=== PATIENT | male | born 1995 | race Caucasian/White ===

== ENCOUNTER 2018-08-10 12:38 | Emergency (ER) | payer OTHER ==
[~2018-08-10] VITALS: Ht 170.2 cm; Wt 70.5 kg
[2018-08-10 13:40] LABS: HEMATOCRIT 50.5 % (42.0-52.0); HEMOGLOBIN 17.2 g/dl (13.5-17.5); MEAN CORPUSCULAR HEMOGLOBIN 30.9 pg (27.0-33.0); MEAN CORPUSCULAR HGB CONC 34.1 g/dl (32.0-36.5); MEAN CORPUSCULAR VOLUME 90.7 fl (80.0-96.0); PLATELET COUNT, AUTOMATED 261 10^3/uL (150-450); RED BLOOD COUNT 5.57 10^6/uL (4.30-6.10); WHITE BLOOD COUNT 8.5 10^3/uL (4.0-10.0)
[2018-08-10 14:04] LABS: AMPHETAMINES LEVEL URINE NEGATIVE (NEGATIVE); BARBITURATES URINE NEGATIVE (NEGATIVE); BENZODIAZEPINES URINE NEGATIVE (NEGATIVE); CANNABINOIDS URINE NEGATIVE (NEGATIVE); COCAINE METABOLITE URINE NEGATIVE (NEGATIVE); METHADONE URINE NEGATIVE (NEGATIVE); OPIATES URINE NEGATIVE (NEGATIVE); PHENCYCLIDINE URINE NEGATIVE (NEGATIVE)
[2018-08-10 14:15] LABS: ACETAMINOPHEN LEVEL < 2.0 UG/ML (10.0-30.0); ALBUMIN 4.2 GM/DL (3.2-5.2); ALT/SGPT 131 U/L (12-78); BILIRUBIN,DIRECT 0.2 MG/DL (0.0-0.2); BILIRUBIN,TOTAL 0.7 MG/DL (0.2-1.0); BLOOD UREA NITROGEN 20 MG/DL (7-18); CALCIUM LEVEL 9.1 MG/DL (8.5-10.1); CARBON DIOXIDE LEVEL 26 MEQ/L (21-32); CHLORIDE LEVEL 102 MEQ/L (98-107); CREATININE FOR GFR 1.17 MG/DL (0.70-1.30); ETHYL ALCOHOL (ETHANOL) < 0.003 % (0.000-0.010); GLOMERULAR FILTRATION RATE > 60.0 (>60); GLUCOSE, FASTING 83 MG/DL (70-100); POTASSIUM SERUM 4.1 MEQ/L (3.5-5.1); SALICYLATE LEVEL < 1.7 MG/DL (5.0-30.0); SODIUM LEVEL 138 MEQ/L (136-145); TOTAL PROTEIN 7.4 GM/DL (6.4-8.2)
[2018-08-10 20:30] VITALS: BP 134/68
--- NOTE | 2018-08-10 21:17 | ECGEPIP ---
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
== END 2018-08-10 23:13 | disposition short-term general hospital (02) ==
LOC: M ED 12:38
DX: R45.851 Suicidal ideations (principal); F33.9 Major depressive disorder, recurrent, unspecified
CPT/HCPCS: 36415; 80048; 80076; 80307; 84443; 85027; 93005; 99284; G0480

== ENCOUNTER 2019-02-10 09:36 | Inpatient (IN) | payer OTHER ==
[~2019-02-10] VITALS: Ht 170.2 cm; Wt 82.8 kg
[2019-02-10] VITALS (30 sets, daily range): BP systolic 74–137; BP diastolic 40–76
[2019-02-10] MEDS ORDERED: IBUP200T45 PO (09:44)
[2019-02-10] MEDS ORDERED: NS 2,330 ML in IV 1 EA IV ONE (10:15)
[2019-02-10 10:49] LABS: HEMATOCRIT 44.3 % (42.0-52.0); MEAN CORPUSCULAR HEMOGLOBIN 30.7 pg (27.0-33.0); MEAN CORPUSCULAR HGB CONC 33.9 g/dl (32.0-36.5); MEAN CORPUSCULAR VOLUME 90.6 fl (80.0-96.0); PLATELET COUNT, AUTOMATED 202 10^3/uL (150-450); RED BLOOD COUNT 4.89 10^6/uL (4.30-6.10)
[2019-02-10 10:53] LABS: WHITE BLOOD COUNT 31.2 10^3/uL (4.0-10.0)
[2019-02-10] MEDS ORDERED: VANCOMYCIN HCL 1,500 MG, VIAL MATE ADAPTER 1 EACH in D5W 250 ML IV ONE (11:00)
[2019-02-10] MEDS ORDERED: PIPERACILLIN/TAZOBACTAM SOD 3.375 GM in D5W MINI-BAG PLUS 50 ML IV ONE (11:00)
[2019-02-10] MEDS ORDERED: ACETAMINOPHEN 325 MG TAB PO ONE (11:00)
[2019-02-10 11:14] LABS: ATYPICAL LYMPH 1 % (0-5); LYMPHOCYTES 1 % (16-44); MONO SCRN NEGATIVE (NEGATIVE); MONOCYTES 13 % (0-5); NEUTROPHILS 73 % (28-66)
[2019-02-10 11:15] LABS: INFLUENZA A AMPLIFICATION NEGATIVE (NEGATIVE); INFLUENZA B AMPLIFICATION NEGATIVE (NEGATIVE)
[2019-02-10 11:15] LABS: ANISOCYTOSIS 1+; PLATELET ESTIMATE NORMAL (NORMAL)
--- NOTE | 2019-02-10 11:20 | REP ---
Clinical: Cough . Comparison: None . Technique: PA and lateral. Findings: The mediastinum and cardiac silhouette are normal. The lung de leon are clear and without acute consolidation, effusion, or pneumothorax. The skeletal structures are intact and normal. Impression: 1. No acute cardiopulmonary process. Electronically Signed by Josh López MD 02/10/2019 11:12 A
[2019-02-10] MEDS ORDERED: CLINDAMYCIN 900 MG in IV 1 EA IV ONE (11:30)
[2019-02-10 11:35] LABS: ALBUMIN 2.6 GM/DL (3.2-5.2); ALT/SGPT 58 U/L (12-78); AMYLASE 24 U/L (25-115); BILIRUBIN,TOTAL 1.6 MG/DL (0.2-1.0); BLOOD UREA NITROGEN 19 MG/DL (7-18); CALCIUM LEVEL 8.1 MG/DL (8.5-10.1); CARBON DIOXIDE LEVEL 26 MEQ/L (21-32); CHLORIDE LEVEL 97 MEQ/L (98-107); GLUCOSE, FASTING 110 MG/DL (70-100); POTASSIUM SERUM 3.9 MEQ/L (3.5-5.1); SODIUM LEVEL 134 MEQ/L (136-145); TOTAL PROTEIN 6.3 GM/DL (6.4-8.2)
[2019-02-10] MEDS ORDERED: EFFE75CA2 PO (11:42)
[2019-02-10] MEDS ORDERED: ACETAMINOPHEN TAB 650MG DOSE (2X325MG) PO ONE (12:45)
[2019-02-10] MEDS ORDERED: IBUPROFEN 800 MG TAB PO ONE (12:45)
--- NOTE | 2019-02-10 14:02 | ECGEPIP ---
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
[2019-02-10] MEDS: NS 1,000 ML IV SCH ×2 (14:30→21:01)
--- NOTE | 2019-02-10 14:51 | HPE ---
DATE OF ADMISSION: 02/10/2019 PRIMARY CARE PHYSICIAN: [facility] CHIEF COMPLAINT: Flu-like symptoms with body aches and fever for one week's duration. 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 He states that his symptoms began last Thursday with body aches and fever. He went through his regular combat training. He states that he did have sparring with a partner, where he wrapped his legs around the other gentleman's belt buckle and then noticed left lower leg swelling later that night. He brushed it off over the weekend; however, on Thursday he noticed that the swelling of the left lower extremity had increased. He went to his troop medics, because it started to hurt to walk Thursday. They brushed it off and told him to put ice on it. Later that morning he went to [facility], because he started having more body aches and higher fevers. He was sent back to the [facility] and told to followup with the medics. On Thursday he tested negative for flu. He continued to have fevers along with palpitations and feeling like his heart was skipping a beat, blurry vision, headaches, and some dizziness as well as diarrhea and sweats with some general malaise, decreased appetite, and feeling like solid foods were getting stuck in his throat. Because his symptoms kept worsening, he presented to the emergency department today. While he was initially afebrile, he did admit to having some Motrin prior to coming to the emergency department. He was found to have a leukocytosis of 31,200 with 73% neutrophils and 12% bands. He was also found to have a lactic acid of 5.1, C-reactive protein (CRP) of 44, and an acute kidney injury (JESSENIA) a with a creatinine of 1.80. Because of his septic picture as well as tachycardia, he was given empiric antibiotic coverage, as well as a 30 mL/kg normal saline bolus, and the hospitalists were called for admission. PAST MEDICAL HISTORY: Anxiety and depression, for which he takes Effexor PAST SURGICAL HISTORY: None. FAMILY HISTORY: Noncontributory. 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 He is originally from [place]. He has traveled to [place], [place], [place], and [place]. He denies having any pets. [facility] He does not smoke, use chewing tobacco, do drugs, or drink alcohol. He states that his last drink was almost a year ago. He is not currently sexually active. He is unmarried. REVIEW OF SYSTEMS: CONSTITUTIONAL: Admits to weight gain from eating MREs while in [place] for training. Positive for sweats and fevers as well as intermittent chills. He also admits to malaise. EYES: Positive for headaches as well as some blurriness in his vision but denies double vision, floaters, or feeling like a curtain got pulled down. EARS, NOSE, THROAT: Denies epistaxis, runny nose, tinnitus, gingival bleeding, toothache, sore throat, or odynphagia, though he does admit that it is difficult for him to this swallow solid foods at the moment. CARDIOVASCULAR: Denies chest pain, paroxysmal nocturnal dyspnea, orthopnea, or symptoms of claudication. Positive for palpitations and feeling like his heart is skipping a beat, only associated with fevers. RESPIRATORY: Denies cough, sputum production, wheeze, hemoptysis, or shortness of breath GASTROINTESTINAL: Positive for difficulty swallowing solids with subsequent vomiting to expel what feels stuck but denies nausea or constipation. Positive for diarrhea without hematochezia, melena, or tenesmus. Denies obstipation or hematemesis. Denies abdominal pain GENITOURINARY: Denies scrotal swelling, incontinence, dysuria, hematuria, nocturia, polyuria. MUSCULOSKELETAL: Positive for diffuse body aches but denies any joint swelling or decreased range of motion. He does have left lower extremity swelling and erythema. INTEGUMENTARY: Positive for rash on his chest, in his thighs, and the posterior aspect of the left leg. No other striae or wounds. Positive for blistering and cracking as well as dry skin on the bottom of his feet. NEUROLOGIC: Denies any history of seizures, paresthesias, anesthesias, or cognitive symptoms. PSYCHIATRIC: Positive for past history of anxiety and depression. Denies paranoia, anhedonia, lack of energy, or episodes of simon. ENDOCRINE: Denies mood swings, increased appetite, tremor, constipation, polydipsia, polyphagia, or feeling faint HEMATOLOGY: Denies any anemia, purpura, or petechiae. PHYSICAL EXAMINATION: Temperature 100.7, pulse 120 and regular, respiratory rate 18, blood pressure 116/60, 99% on room air. GENERAL: This is a young and fit male, who is lying in the stretcher of the of the emergency department. He looks flushed and tired but is in no acute distress. HEENT: Eyes are clear. Mucous membranes are moist, though the tongue does look white without any friable material on it. Posterior pharynx is free of exudates or erythema. Nasal turbinates are neither erythematous nor enlarged. There is no rhinorrhea present. External auditory canals are without erythema, and the tympanic membranes have a good cone of light bilaterally. Head is atraumatic, normocephalic. Extraocular eye movements are intact. Uvula and tongue are both midline. Flat, nonblanching, macular rash across the cheeks which does not spare the nasolabial fold. NECK: Supple. No lymphadenopathy. No jugular venous distention (JVD). No thyromegaly. No masses. CHEST: Diffuse pink, flat macular rash on the anterior chest that crosses the midline and extends almost to the axilla bilaterally. Symmetric excursion. No accessory muscle usage to breathe. LUNGS: Clear to auscultation bilaterally. No wheezes, rhonchi or rales. HEART: Tachycardiac with a heart rate around 100. Regular rhythm. No murmurs, gallops, or rubs. Point of maximal impulse (PMI) is not displaced. ABDOMEN: Normoactive bowel sounds in all four quadrants. No tympany to percussion. No pain to palpation in all four quadrants. No masses. Nondistended. BACK: No rashes. Straight. Costovertebral angle (CVA) tenderness bilaterally. GENITALIA: Circumcised male. No scrotal edema, swelling, or rashes. No inguinal lymphadenopathy appreciated. EXTREMITIES: Mild nonpitting edema of the left leg in the area of the popliteal fossa. No lower extremity swelling. otherwise noted bilaterally. Pulses are 2+ in all four extremities. SKIN: On the back of the patient's left leg in the popliteal fossa there is greater than 10 cm length of erythema that is warm to touch, the central part of which is mildly indurated. There is no fluctuance appreciated nor any masses palpated below the area of erythema. It has been outlined in marking pen. There is also a mild maculopapular rash on the patient's inner anterior thighs that is warm to touch, though does not look erythematous in nature. The patient's bilateral feet to have multiple areas of blistering in different stages of healing with rawness of the surrounding skin and callus formation. There are some minor abrasion almanza on the bottom of the feet as well. NEUROLOGIC: Sensation intact throughout. Reflexes not tested. Muscle strength 5/5 in all four extremities. PSYCHIATRIC: Answers questions appropriately. Affect is full. No pressured speech noted. LABORATORY DATA: CBC: WBC 31.2, hemoglobin 15, hematocrit 44.3, platelets 202. Differential: Neutrophils 73%, bands 12%, lymphocytes 1%, monocytes 13%. Chemistry: Sodium 134, potassium 3.9, chloride 97, carbon dioxide 26, BUN 19, creatinine 1.80, glucose 110, lactic acid 5.1, calcium 8.1. Total bilirubin 1.6, direct bilirubin 1.0, AST 36, ALT 58, alkaline phosphatase 151, CRP 44.1, total protein 6.3, albumin 2.6. Amylase 24. Serology: Syphilis pending. Mononucleosis screen negative. Influenza A negative, influenza B negative. Microbiology: Blood cultures times two pending. Group A streptococcus pending. Chest x-ray Independently reviewed: PA and lateral chest. Airway is midline without tracheal deviation. Bony structures are intact. Cardiac silhouette is not enlarged. Diaphragmatic angles are sharp. There are no extra leads. Lung de leon are clear without evidence of infiltration. Normal chest x-ray. ASSESSMENT: This is a 23-year-old male being admitted to the hospital for sepsis secondary to what looks to be left lower extremity cellulitis. Admit to medical/surgical with routine labs and orders. PLAN: 1. Sepsis secondary to cellulitis. The patient received the 30 mL/kg bolus in the emergency department and had an initial lactic acid of 5.1. Will run maintenance fluids at 110 mL per hour and continue treating with empiric antibiotic therapy. Blood cultures times two are pending. Repeat lactic acid is pending. 2. Acute kidney injury, most likely secondary to his underlying infection and subsequent dehydration. Should likely resolve with adequate fluid resuscitation. 3. Cellulitis of the left lower extremity. Continue with vancomycin and Zosyn for empiric coverage. Tylenol and Motrin ordered for pain or fevers. Pending blood cultures and clinical improvement. 4. Anxiety and depression. Continue with home Effexor. 5. Deep vein thrombosis (DVT) prophylaxis. Heparin. DISPOSITION: Expect 2-3 night stay. The patient will be admitted inpatient, as we expect more than two midnights. I have personally evaluated and examined the patient. Discussed with residents and student regarding plan of care and agree with the above assessment and plan. EDELMIRA
[2019-02-10] MEDS: HEPARIN SOD (PORCINE) 5000 UNITS/ML VIAL SC SCH ×2 (15:08→21:01)
[2019-02-10] MEDS: PIPERACILLIN/TAZOBACTAM SOD 3.375 GM in D5W MINI-BAG PLUS 50 ML IV SCH ×2 (17:22→23:43)
[2019-02-10] MEDS: ACETAMINOPHEN TAB 650MG DOSE (2X325MG) PO PRN (17:27)
[2019-02-10] MEDS: VANCOMYCIN HCL 1,000 MG, VIAL MATE ADAPTER 1 EACH in D5W 250 ML IV SCH (18:31)
[2019-02-10] MEDS: DIMETHICONE 2% OINTMENT(VANIPLY) 70GM TUBE TOP SCH (21:00)
[2019-02-10] MEDS ORDERED: diphenhydrAMINE 25 MG CAP PO ONE (22:00)
[2019-02-10] MEDS ORDERED: NS 500 ML IV ONE (22:15)
[2019-02-10] MEDS ORDERED: NOREPINEPHRINE BITARTRATE 8 MG in D5W 492 ML IV SCH (23:00)
[2019-02-10] MEDS ORDERED: CALCIUM CARBONATE 500 MG CHEW U/D PO PRN (23:30)
[2019-02-10] MEDS ORDERED: SIMETHICONE 80 MG CHEW TAB PO PRN (23:30)
[2019-02-11] VITALS (36 sets, daily range): BP systolic 86–125; BP diastolic 46–56
--- NOTE | 2019-02-11 00:07 | REPVR ---
PROCEDURE INFORMATION: Exam: XR Chest, 1 View Exam date and time: 02/10/2019 11:36 PM Age: 23 years old Clinical history: Device placement; Other: Line placement; Additional info: S/P line placement TECHNIQUE: Imaging protocol: XR of the chest Views: 1 view. COMPARISON: CR Chest, 2 view PA, Lat 2019-02-10 10:22 FINDINGS: Tubes, catheters and devices: Right IJ central venous catheter tip in the mid SVC. Lungs: Engorged vasculature suggesting mild pulmonary vascular congestion. Pleural space: Unremarkable. No pleural effusion. No pneumothorax. Heart/Mediastinum: Cardiac enlargement. Bones/joints: Unremarkable. IMPRESSION: 1. Right IJ central venous catheter tip in the mid SVC. 2. Cardiac enlargement. Engorged vasculature suggesting mild pulmonary vascular congestion. Electronically signed by: Dom Paniagua On 02/11/2019 00:06:39 AM
[2019-02-11 00:19] LABS: MAGNESIUM LEVEL 1.3 MG/DL (1.8-2.4); PHOSPHORUS LEVEL 2.1 MG/DL (2.5-4.9)
[2019-02-11] MEDS ORDERED: SODIUM PHOSPHATE INJ 20 MMOL in D5W 250 ML IV ONE ×2 (01:00→04:00)
[2019-02-11] MEDS ORDERED: MAGNESIUM OXIDE 400 MG TAB (MAG-OX) PO ONE (01:15)
--- NOTE | 2019-02-11 01:31 | IPNPDOC ---
Text Note Date of Service The patient was seen on 02/11/19. NOTE NIGHT NOTE: Patient noted to be hypotensive despite aggressive fluid hydration and additional boluses added. Recheck 80s/40s. He reportedly already received 5+ l iters since admission earlier today. Chart reviewed and patient assessed at bedside on 4Pav. General exam: A&O 3, NAD, resting comfortably HEENT: NCAT, EOMI, anicteric sclera Cardiac: regular rhythm, normal S1 & S2, no murmurs, tachycardic in 130s Respiratory: good air exchange, no wheeze/rhonchi. +Bibasilar crackles Abdomen: soft, ND, normoactive bowel sounds, benign, mild abd discomfort diffusely from deep palpation pt attributes to gas Extremity: 2+ radial and dorsalis pedis pulses, no edema or calf tenderness Skin: [place], warm, dry, area of erythema in left posterior leg encircled and b/l feet with healing cracks and lesions. No active drainage or visible abscess Msk: strength 5/5 x4, normal tone Neuro: normal speech, no focal deficits Psych: Normal mood and affect Already on broad-spectrum antibiotics, and lactic acid not improved upon recheck. Was transferred to ICU urgently, central line placed, Levophed started. He responded well, currently requiring 2mcg pressor to maintain MAP >65. Resting comfortably upon recheck. VS,Fishbone, I+O VS, Fishbone, I+O Laboratory Tests 02/10/19 10:11 Vital Signs Date Time Temp Pulse Resp B/P (MAP) Pulse Ox O2 Delivery O2 Flow Rate FiO2 02/11/19 01:00 130 94/50 (65) 93 Room Air 02/11/19 00:00 98.7 18 I&O- Last 24 Hours up to 6 AM 02/11/19 06:00 Intake Total 5070 ml Output Total 1000 ml Balance 4070 ml GME ATTESTATION GME ATTESTATION My faculty preceptor for this patient encounter was physically present during the encounter and was fully available. All aspects of the patient interview, examination, medical decision making process, and medical care plan development were reviewed and approved by the faculty preceptor. The faculty preceptor is aware and concurs with the plan as stated in the body of this note and will attest to such by his/her cosignature. JEFFERSON MARTINEZ DO Feb 11, 2019 01:31
--- NOTE | 2019-02-11 01:33 | ROOPDOC ---
[facility] Report Of Operation Report of Operation DATE OF PROCEDURE: 02/10/2019 PREPROCEDURE DIAGNOSES: Septic shock, cellulitis POSTPROCEDURE DIAGNOSES: Septic shock, cellulitis PROCEDURE: right IJ central line placement Performed by: Dr. Brant Sargent and Claudio Best ANESTHESIA: local ESTIMATED BLOOD LOSS: <5mL COMPLICATIONS: none PROCEDURE NOTE: Consent was obtained prior to the procedure. Indications, risks and benefits were explained to the patient. Procedure was performed at bedside urgently in ICU. DESCRIPTION OF PROCEDURE: The patient was placed in the supine position, was placed in Trendelenburg. The right chest region and neck was prepped with chlorhexidine scrub. The patient was draped. The medial and lateral head of the sternocleidomastoid were identified, as was the carotid pulse. The internal jugular vein was identified. Anesthesia was achieved over the internal jugular vein on the right using a 1% lidocaine solution. Once anesthetized, an introducer needle was inserted into the internal jugular vein under direct ultrasound visualization. Venous blood was withdrawn, syringe was removed and a guidewire was advanced on to the introducer needle. The guidewire was visualized in the internal jugular vein by ultrasound. A small incision was made in the skin surface with a scalpel, and the introducer needle was exchanged for a dilator over the guidewire. After appropriate dilation was obtained, the dilator was exchanged over the wire for a central venous catheter. The wire was removed, and the catheter was sutured in place. A sterile bandage was placed over the catheter site. The patient tolerated the procedure well without any hemodynamic compromise. At the time of procedure completion, all ports were aspirated and flushed properly. Postprocedure x-ray was performed, which demonstrated adequate positioning of the central venous catheter in the right internal jugular vein. GME ATTESTATION GME ATTESTATION My faculty preceptor for this patient encounter was physically present during the encounter and was fully available. All aspects of the patient interview, examination, medical decision making process, and medical care plan development were reviewed and approved by the faculty preceptor. The faculty preceptor is aware and concurs with the plan as stated in the body of this note and will attest to such by his/her cosignature. CLAUDIO BEST DO Feb 11, 2019 01:33
[2019-02-11] MEDS: NS 1,000 ML IV SCH ×3 (02:34→18:06)
[2019-02-11] MEDS: HEPARIN SOD (PORCINE) 5000 UNITS/ML VIAL SC SCH ×3 (05:01→21:13)
[2019-02-11] MEDS: PIPERACILLIN/TAZOBACTAM SOD 3.375 GM in D5W MINI-BAG PLUS 50 ML IV SCH ×4 (05:01→22:17)
[2019-02-11 05:23] LABS: MEAN CORPUSCULAR HEMOGLOBIN 30.7 pg (27.0-33.0); MEAN CORPUSCULAR HGB CONC 34.2 g/dl (32.0-36.5); MEAN CORPUSCULAR VOLUME 89.8 fl (80.0-96.0); PLATELET COUNT, AUTOMATED 177 10^3/uL (150-450); RED BLOOD COUNT 4.01 10^6/uL (4.30-6.10)
[2019-02-11 05:35] LABS: WHITE BLOOD COUNT 36.3 10^3/uL (4.0-10.0)
[2019-02-11 05:36] LABS: HEMOGLOBIN 12.3 g/dl (13.5-17.5)
[2019-02-11 06:00] LABS: C REACTIVE PROTEIN QUANTITATIV 34.3 MG/DL (0.00-0.30); CALCIUM LEVEL 7.2 MG/DL (8.5-10.1); CREATININE FOR GFR 1.74 MG/DL (0.70-1.30); MAGNESIUM LEVEL 1.3 MG/DL (1.8-2.4); PHOSPHORUS LEVEL 4.8 MG/DL (2.5-4.9); POTASSIUM SERUM 3.3 MEQ/L (3.5-5.1)
[2019-02-11] MEDS: VANCOMYCIN HCL 1,000 MG, VIAL MATE ADAPTER 1 EACH in D5W 250 ML IV SCH ×3 (06:05→19:22)
[2019-02-11 06:12] LABS: ERYTHROCYTE SEDIMENTATION RATE 53 mm/hr (0-15)
[2019-02-11 06:18] LABS: ATYPICAL LYMPH 1 % (0-5); METAMYELOCYTES 2 % (0-0); MONOCYTES 3 % (0-5); NEUTROPHILS 68 % (28-66); PLATELET ESTIMATE NORMAL (NORMAL)
[2019-02-11 07:48] LABS: ALBUMIN 1.7 GM/DL (3.2-5.2); BILIRUBIN,DIRECT 1.6 MG/DL (0.0-0.2); BILIRUBIN,TOTAL 2.1 MG/DL (0.2-1.0); TOTAL PROTEIN 5.4 GM/DL (6.4-8.2)
[2019-02-11] MEDS: NYSTATIN 500,000 U/5 ML SUSP UDC SS SCH ×4 (08:29→21:13)
[2019-02-11] MEDS: VENLAFAXINE **XR** 75MG CAPSULE PO SCH (08:29)
[2019-02-11] MEDS: ACETAMINOPHEN TAB 650MG DOSE (2X325MG) PO PRN (08:29)
[2019-02-11] MEDS: DIMETHICONE 2% OINTMENT(VANIPLY) 70GM TUBE TOP SCH ×2 (08:30→21:14)
[2019-02-11] MEDS ORDERED: POTASSIUM CHLORIDE 10 MEQ SR TABLET PO ONE ×2 (08:30→19:00)
[2019-02-11 08:39] LABS: APPEARANCE, URINE MANUAL CLEAR (CLEAR); BILIRUBIN, URINE MANUAL NEGATIVE (NEGATIVE); COLOR, URINE MANUAL YELLOW (YELLOW); GLUCOSE, URINE (UA) MANUAL NEGATIVE (NEGATIVE); KETONE, URINE MANUAL NEGATIVE (NEGATIVE); PH,URINE MAN 5.5 UNITS (5.0 - 7.0); PROTEIN, URINE MANUAL TRACE mg/dL (NEGATIVE); SPECIFIC GRAVITY,URINE MANUAL 1.015 (1.002-1.035); UROBILINOGEN, URINE MANUAL NORMAL (NORMAL)
[2019-02-11 08:40] LABS: BLOOD URINE MANUAL POSITIVE (NEGATIVE); LEUKOCYTE ESTERASE, URINE MAN POSITIVE (NEGATIVE); NITRITE, URINE MANUAL NEGATIVE (NEGATIVE)
[2019-02-11] MEDS: METOCLOPRAMIDE INJ 10MG/2ML VIAL (J2765) IV PRN (08:44)
[2019-02-11] MEDS ORDERED: MAG SULF 1GM/100ML (MAG RUN) 1 GM in IV 1 EA IV ONE (09:00)
[2019-02-11 09:01] LABS: AMORPHOUS SEDIMENT, URINE SMALL AMOUNT (NEGATIVE); BACTERIA, URINE MOD AMOUNT; MUCUS, URINE SMALL AMOUNT (NEGATIVE); RBC, URINE 0-1 /hpf (0-3); RENAL EPITHELIAL CELLS, URINE SMALL AMOUNT /hpf; SQUAMOUS EPITHELIAL CELL URINE NONE SEEN /hpf (SMALL AMT)
--- NOTE | 2019-02-11 09:41 | REP ---
Clinical: Abnormal auscultation and dyspnea. Technique: PA and lateral. Comparison: 02/10/2019. Findings: Right IJ line with tip in the SVC. New bibasilar infiltrates and small pleural effusions compatible with acute pneumonia. No pneumothorax. Mediastinum and cardiac silhouette are normal. Skeletal structures intact. Impression: Bibasilar infiltrates and small pleural reactions consistent with acute pneumonia. Correlation is recommended. Electronically Signed by Josh López MD 02/11/2019 09:33 A
--- NOTE | 2019-02-11 09:42 | REP ---
Clinical: Pain. Technique: AP, lateral, bilateral oblique views of the left knee. Findings: The osseous structures and joint spaces are intact and normal. There is no evidence for acute fracture or dislocation. No joint effusion is appreciated. Surrounding soft tissues are unremarkable. No subcutaneous emphysema or radiodense foreign body. Impression: Normal examination. No acute fracture or dislocation. Electronically Signed by Josh López MD 02/11/2019 09:34 A
[2019-02-11 09:56] LABS: ANTI-STREPTOLYSIN O QUANT 22.7 IU/ML (<214.0)
[2019-02-11 10:02] LABS: HIV 1&2 SCREEN CENTAUR NEGATIVE (NEGATIVE)
[2019-02-11 10:33] LABS: HYALINE CAST, URINE NONE SEEN /lpf (0-1)
--- NOTE | 2019-02-11 10:56 | REP ---
Clinical: Pain and swelling . Technique: Alford scale and color Doppler evaluation left lower extremity using linear high frequency transducer. Findings: Ultrasound examination of the left lower extremity deep venous structures from the common femoral vein to the popliteal vein demonstrates normal compressibility flow and wave patterns in response to respiration and augmentation. There is no evidence for deep venous thrombosis. Incidental dull inguinal nodes measuring up to 5.4 cm maximal diameter. Impression: No evidence for deep venous thrombosis. Inguinal lymph nodes. Electronically Signed by Josh López MD 02/11/2019 10:47 A
--- NOTE | 2019-02-11 11:02 | REP ---
Clinical: Left popliteal fossa swelling. Technique: Real time sutherland scale and color evaluation using linear high frequency transducer. Findings: Directed ultrasound examination of the left popliteal fossa demonstrates subcutaneous edema without focal fluid collection, mass, or further abnormality by ultrasound evaluation. Popliteal vein appears patent. Impression: Subcutaneous edema. Electronically Signed by Josh López MD 02/11/2019 10:54 A
--- NOTE | 2019-02-11 12:06 | IPNPDOC ---
Text Note Date of Service The patient was seen on 02/11/19. NOTE SUBJECTIVE: Patient seen at bedside in the ICU. He remained hypotensive night despite aggressive fluid resuscitation, and he required pressor support in order to maintain a map greater than 65. He was transferred to the ICU and a central line was placed. Lactic acid done showed an increase to 5.1, and it has remained high since with some mild improvement. He continues on broad-spectrum IV antibiotics. His portable chest x-ray overnight, after the central line was placed, showed cardiomegaly with diffuse pulmonary infiltrates, which may be secondary to the amount of fluids that he received in combination with sepsis. Patient still has discomfort to the left lower extremity along with swelling. His rash has improved a little bit, and is not as red as it was yesterday. He states that he is tired, and now has shortness of breath when laying on his left side or laying flat. His continues to make urine, and the color has gone from a reddish/brownish to a gamino yellow. He states that he is still incredibly thirsty, especially when his temperature increases. He is still having some nausea with solid food and had one episode of emesis overnight. OBJECTIVE: Vitals: see below GENERAL: This is a young and fit male, who is sitting up in the ICU. He looks flushed and tired but is in no acute distress. He is pleasant and interactive HEENT: Head is atraumatic, normocephalic. Extraocular eye movements are intact. Eyes are clear, conjunctiva without pallor. Mucous membranes are moist, the tongue does not look as white as it was yesterday. Posterior pharynx is free of exudates or erythema. Uvula and tongue are both midline. Flat and macular rash across the cheeks has improved and now blanches. NECK: Supple. No lymphadenopathy. No jugular venous distention (JVD). No thyromegaly. No masses. CHEST: Diffuse pink, flat macular rash on the anterior chest has improved. Symmetric excursion. No accessory muscle usage to breathe, though breaths are more shallow today than they were yesterday. LUNGS: Clear to auscultation bilaterally in the apices. Mild bibasilar crackles appreciated, with E to A egophony present in the left lower lobe. HEART: Tachycardiac with a heart rate around 120. Regular rhythm. No murmurs, gallops, or rubs. Point of maximal impulse mildly displaced to the left. ABDOMEN: Normoactive bowel sounds in all four quadrants. No tympany to percussion. No pain to palpation in all four quadrants. No masses, no s plenomegaly. Nondistended. BACK: No rashes. Straight. Costovertebral angle (CVA) tenderness bilaterally. EXTREMITIES: Pulses are 2+ in all four extremities. The right lower extremity has no deficits and active range of motion (flexion of the hip with internal and external rotation are intact with full range of motion, as is extension and flexion of the right knee); flexion and extension of the left hip is intact with full range of motion to internal and external rotation. Flexion and extension of the left knee are limited and painful. There is no joint swelling of the anterior knees bilaterally, nor is there ballottement. There is tenderness to the posterior aspect of the left knee over the area of erythema described below, with mild nonpitting edema of the popliteal fossa and surrounding subcutaneous tissues. SKIN: On the back of the patient's left leg in the popliteal fossa there is progressive erythema which is not as pronounced as it was yesterday. The area of induration in the center of the rash is less pronounced as well. There is no fluctuance appreciated nor any masses palpated below the area of erythema. The maculopapular rash on the patient's inner anterior thighs has resolved. The patient's bilateral feet to have multiple areas of blistering in different stages of healing with rawness of the surrounding skin and callus formation. There are some minor abrasion almanza on the bottom of the feet as well. NEUROLOGIC: Sensation intact throughout. Reflexes not tested. Muscle strength 5/5 in all four extremities. PSYCHIATRIC: Answers questions appropriately. Affect is full. No pressured speech noted. LABORATORY DATA: CBC: White count still elevated at 36, with mild in hemoglobin and hematocrit consistent with the amount of fluids he received overnight. Bandemia at 26%. ESR 53. Chemistry: Potassium mildly decreased at 3.3, kidney function stable with a creatinine of 1.74. CRP decreasing from 44.1-34.3. Serology: Syphilis nonreactive. Mononucleosis screen negative. Influenza A negative, influenza B negative. MRSA not detected. Anti-streptolysin O antibody 22.7 (normal <214.0, more important is the trend this early in the disease process). HIV negative. Microbiology: Blood cultures times two pending. Group A streptococcus negative. Pro-calcitonin pending. Urine culture pending Urine: Trace protein, positive blood, positive leukocyte esterase, 5-7 urine WBCs, small amount renal epithelial cells, small amount of urine mucus Chest x-ray ordered this morning is independently reviewed: I disagree with the radiologist's read, on the lateral there looks to be a meniscus suggesting pleural effusion in the left lower lobe consistent with either a egophony heard on exam, as well as the patient's symptom of orthopnea when laying in the left lateral decubitus position. Pneumonia would not show up that quickly. ASSESSMENT: This is a 23-year-old male being admitted to the hospital for sepsis secondary to left lower extremity cellulitis. Hosp Day#2, ICU Day #1, transferred overnight due to hypotension requiring pressor support. On IV fluids and broad- spectrum antibiotics, ABX Day #2. PLAN: 1. Sepsis secondary to cellulitis. The patient received the 30 mL/kg bolus in the emergency department and continued aggressive fluid resuscitation. Despite this he had hypotension requiring transfer to the ICU, central line placement, and pressor therapy. Will continue treating with empiric antibiotic therapy, fluids and pressors. Clinically he meets criteria for toxic shock syndrome, with a fever (though it has not been recorded as greater than 102.0 Fahrenheit), diffuse macular erythroderma, hypotension requiring pressors, vomiting with diarrhea onset of his illness, myalgias, pyuria, and a total bilirubin greater than 2 times the upper limit of normal. ASO only 22.7 (positive is >214), however we will redraw in 2-3 days to assess if there is a trend, as if this is toxic shock syndrome secondary to Streptococcus species, ASO would not be elevated this early. With his worsening, despite empiric antibiotic therapy, will also test for fungal diseases as he has traveled [place] extensively around [place]. Clinically does not look like [place] spotted fever, or any rickettsial diseases. However his EKG did show an incomplete right bundle branch block, so we will screen for Lyme disease as well. HIV was negative, syphilis was negative, mono screen was negative. Differential from his complete blood count does not support a viral cause. We are also working him up for immunodeficiency by looking at complements. Should infectious disease workup be unrevealing, we will pursue rheumatological causes. 2. Cellulitis of the left lower extremity. Continue with vancomycin and Zosyn for empiric coverage. Redness improving. Tylenol and Motrin ordered for pain or fevers. Pending blood cultures and clinical improvement. Left lower extremity ultrasounds were negative for DVT, however there was an incidental dull inguinal node measuring up to 5.4 cm in maximal diameter, otherwise there was only subcutaneous edema seen in the popliteal fossa. 3. Acute kidney injury. Renal function stable at this time. Most likely secondary to sepsis from his underlying infection. Differential would also include post-streptococcal or post-infectious glomerulonephritis, or ATN. Previous creatinine in July 14.. Should likely resolve with IV fluids and antibiotics to treat his underlying infection. If the patient becomes oliguric, we will consult nephrology. 4. Tachycardia. Most likely due from his infectious process. Echocardiogram pending, as his EKG showed an incomplete right bundle-branch branch block along with sinus tachycardia, which he did not have in July 4. Anxiety and depression. Mood stable. Continue with home Effexor. 5. Deep vein thrombosis (DVT) prophylaxis. Heparin. DISPOSITION: Expect extended stay. The patient will stay in ICU until he no longer requires pressor support VS,Fishbone, I+O VS, Fishbone, I+O Laboratory Tests 02/11/19 05:05 Vital Signs Date Time Temp Pulse Resp B/P (MAP) Pulse Ox O2 Delivery O2 Flow Rate FiO2 02/11/19 07:08 98/50 02/11/19 06:00 126 93 Room Air 02/11/19 04:00 99.3 24 I&O- Last 24 Hours up to 6 AM 02/11/19 06:00 Intake Total 5708 ml Output Total 1600 ml Balance 4108 ml GME ATTESTATION ATTENDING NOTE I have personally evaluated and examined the patient. Discussed with residents/students regarding plan of care and agree with the above assessment and plan. IVAN BRENNAN D.O. Feb 11, 2019 12:06 MYLES ESTRELLA MD Feb 11, 2019 14:39
--- NOTE | 2019-02-11 14:19 | PHACANCOPD ---
PHARMACY VANCOMYCIN DOSING Pt Demographics Demographics Patient Age:23 , Weight:88.600 , Gender: male Adjusted Body Weight Date: 02/11/19, Adjusted Body Weight: Kg Events Past 24 Hours Events Past 24 Hours: YES: Fever, Elevation in WBC; NO: Dialysis, Diuretic Therapy, Change in CrCl, Pending Diagnostics, Pending Procedures, Other Vancomycin Vancomycin indication: cellulitis/sepsis Vancomycin Target Ranges: 15-20 mcg/ml Vancomycin Load Y/N: Yes Load Dose Date Time Vancomycin Load Dose: 1000mg Date: 02/10 Time: ~1230 Vancomycin Dose Date: 02/10/19. Current Vancomycin Dose: [1g IV q12h @18] Intermittent Dosing?: No Labs Labs Item Value Date Time C-Reactive Protein, Quantitative 44.10 MG/DL H 02/10/19 1011 Creatinine 1.80 MG/DL H 02/10/19 1011 White Blood Count 31.2 10^3/uL *H 02/10/19 1011 White Blood Count 36.3 10^3/uL *H 02/11/19 0505 Erythrocyte Sedimentation Rate 53 mm/hr H 02/11/19 0505 Creatinine 1.74 MG/DL H 02/11/19 0505 Vital Signs Label Value Date Time Patient Temperature 100.0 degrees F 02/11/19 1200 Temperature Source Temporal 02/11/19 1200 Micro Microbiology 02/11/19 Urine Culture, Received Pending 02/10/19 Blood Culture - Preliminary, Resulted No growth after 24 hours . All specim... 02/10/19 Group A Streptococcus Screen ([facility]) - Final, Complete 02/10/19 Blood Culture - Preliminary, Resulted No growth after 24 hours . All specim... Creatinine Clearance Date:02/11/19. Creatinine Clearance: [~60 ml/min]. Pending Labs Vanco trough scheduled 02/11 @17:00 Assessment and Plan Maintaining Current Dose?: Yes Reason for dose change: No Dose Change Pharmacist Note Pharmacist Note Date: 02/11/19. Pharmacist note: pt has been started on Zosyn and Vancomycin for cellulitis/sepsis. He also received Clindamycin 900mg IV yesterday afternoon x1 dose. His SCr remains elevated, has been receiving NS @100 ml/hr and also required Levophed last evening. He has not been on vancomycin at our facility in the past. He received his first vancomycin 1g dose in the ER yesterday around noon, followed by 1g q12h dosing to begin ~6 hours later. I have a trough scheduled this afternoon before the 18:00 dose. Cultures are pending. We will continue to monitor and make adjustments as necessary. Wisam Munoz Pharm.D. Feb 11, 2019 14:19
--- NOTE | 2019-02-11 15:01 | ECHO ---
DATE OF SERVICE: 02/11/2019 REFERRING PROVIDER: Dr. Blanca Sanford PATIENT LOCATION: Room 3202. REASON FOR THE STUDY: Dysrhythmia. 2D MEASUREMENTS: IVS: 1.0 cm LV: 5.5 cm LVPW: 1.0 cm LA: 3.5 cm Aorta: 2.7 cm RV: 3.5 cm IVC: 1.3 cm DOPPLER MEASUREMENTS: Peak velocity across the aortic valve: 1.4 m/s Peak velocity across the LVOT: 0.9 m/s Maximum tricuspid valve velocity: 2.4 m/s 2D COMMENTS: 1. Borderline enlarged left ventricle with normal left ventricular size and a normal global left ventricular systolic function. The estimated left ventricular systolic ejection fraction is 65-70%. 2. The left atrium is normal in size. The right atrium and the right ventricle appeared to be mildly enlarged but may be off axis. The right ventricular free wall seems to be moving well. 3. The atrial septum appeared to be normal, but there is a color-flow jet at the level of the fossa ovalis and a PFO/patent foramen ovale should be ruled out with a bubble study at one point. 4. Normal aortic root. 5. A small pericardial effusion was noted around the heart, no evidence of cardiac tamponade. 6. The aortic valve, mitral valve, and tricuspid valve, as well as the pulmonic valve appeared to be normal. The proximal pulmonary artery branches were not well visualized. 7. The inferior vena cava was normal in size, central venous pressure is most likely normal. DOPPLER: 1. Detects mild mitral regurgitation, trace to mild tricuspid regurgitation, and trace pulmonic regurgitation. The calculated pulmonary artery systolic pressure is about 30 mmHg. Assessment of the left ventricular diastolic function was limited, summation of the E and the A-wave was present and due to tachycardia. 2. The inferior vena cava was normal in size, central venous pressure might be normal. IMPRESSION: 1. Normal global left ventricular systolic function. Assessment of the left ventricular diastolic function was limited, as mentioned above. 2. Mild mitral regurgitation. 3. Trace to mild tricuspid regurgitation with probably mild pulmonary hypertension. 4. A small pericardial effusion was noted, no evidence of cardiac component. 5. Possible patent foramen ovale, patient might benefit from a bubble study with agitated normal saline to look for intracardiac shunt because, in limited views, the right heart chambers appeared to be mildly enlarged. 6. The patient was tachycardiac during the test with a heart rate up to 130 beats per minute at times.
[2019-02-11] MEDS: CLINDAMYCIN 900 MG in IV 1 EA IV SCH ×2 (16:37→21:13)
--- NOTE | 2019-02-11 17:26 | REPVR ---
PROCEDURE INFORMATION: Exam: CT Left Lower Extremity Without Contrast, Knee Exam date and time: 02/11/2019 4:55 PM Age: 23 years old Clinical history: Swelling or effusion of joint; Knee; Additional info: Left knee swelling, R/O compartment swelling TECHNIQUE: Imaging protocol: CT of the Left lower extremity without contrast was performed. Exam focused on the knee. Radiation optimization: All CT scans at this facility use at least one of these dose optimization techniques: automated exposure control; mA and/or kV adjustment per patient size (includes targeted exams where dose is matched to clinical indication); or iterative reconstruction. COMPARISON: CR Knee, complete LEFT 02/11/2019 9:18 AM FINDINGS: Bones/joints: Small knee joint effusion. Soft tissues: Soft tissue edema demonstrated in the subcutaneous soft tissues, adjacent to the medial and lateral aspects of the quadriceps muscles as well as in the fascial planes within the distal thigh and proximal calf. Correlation with clinical evaluation recommended to exclude compartment syndrome. IMPRESSION: 1. Small knee joint effusion. 2. Soft tissue edema demonstrated in the subcutaneous soft tissues, adjacent to the medial and lateral aspects of the quadriceps muscles as well as in the fascial planes within the distal thigh and proximal calf. Correlation with clinical evaluation recommended to exclude compartment syndrome. Electronically signed by: Nick Barragan On 02/11/2019 17:25:28 PM
[2019-02-11 17:43] LABS: HEMATOCRIT 35.5 % (42.0-52.0); HEMOGLOBIN 11.9 g/dl (13.5-17.5); MEAN CORPUSCULAR HEMOGLOBIN 30.4 pg (27.0-33.0); MEAN CORPUSCULAR HGB CONC 33.5 g/dl (32.0-36.5); MEAN CORPUSCULAR VOLUME 90.8 fl (80.0-96.0); PLATELET COUNT, AUTOMATED 173 10^3/uL (150-450); RED BLOOD COUNT 3.91 10^6/uL (4.30-6.10)
[2019-02-11 17:47] LABS: WHITE BLOOD COUNT 34.7 10^3/uL (4.0-10.0)
[2019-02-11 18:02] LABS: ALBUMIN 1.7 GM/DL (3.2-5.2); BILIRUBIN,TOTAL 1.9 MG/DL (0.2-1.0); CALCIUM LEVEL 7.5 MG/DL (8.5-10.1); CREATININE FOR GFR 1.68 MG/DL (0.70-1.30); GLOMERULAR FILTRATION RATE 55.2 (>60); POTASSIUM SERUM 3.1 MEQ/L (3.5-5.1); TOTAL PROTEIN 5.3 GM/DL (6.4-8.2)
[2019-02-11 18:19] LABS: DOHLE BODIES 1+; EOSINOPHILS 1 % (0-3); MONOCYTES 5 % (0-5); NEUTROPHILS 87 % (28-66); PLATELET ESTIMATE NORMAL (NORMAL)
[2019-02-11 18:35] LABS: MAGNESIUM LEVEL 1.9 MG/DL (1.8-2.4)
[2019-02-12] VITALS (19 sets, daily range): BP systolic 92–111; BP diastolic 50–62
[2019-02-12] MEDS: ACETAMINOPHEN TAB 650MG DOSE (2X325MG) PO PRN ×2 (00:05→15:38)
[2019-02-12] MEDS: NS 1,000 ML IV SCH ×2 (04:52→16:31)
[2019-02-12] MEDS: VANCOMYCIN HCL 1,000 MG, VIAL MATE ADAPTER 1 EACH in D5W 250 ML IV SCH ×2 (04:52→17:34)
[2019-02-12 05:16] LABS: HEMATOCRIT 34.9 % (42.0-52.0); HEMOGLOBIN 11.6 g/dl (13.5-17.5); MEAN CORPUSCULAR HEMOGLOBIN 30.1 pg (27.0-33.0); MEAN CORPUSCULAR HGB CONC 33.2 g/dl (32.0-36.5); MEAN CORPUSCULAR VOLUME 90.4 fl (80.0-96.0); PLATELET COUNT, AUTOMATED 140 10^3/uL (150-450); RED BLOOD COUNT 3.86 10^6/uL (4.30-6.10)
[2019-02-12 05:21] LABS: WHITE BLOOD COUNT 36.8 10^3/uL (4.0-10.0)
[2019-02-12] MEDS: PIPERACILLIN/TAZOBACTAM SOD 3.375 GM in D5W MINI-BAG PLUS 50 ML IV SCH ×4 (05:50→22:00)
[2019-02-12 06:02] LABS: ALBUMIN 1.5 GM/DL (3.2-5.2); BILIRUBIN,TOTAL 2.2 MG/DL (0.2-1.0); C REACTIVE PROTEIN QUANTITATIV 28.4 MG/DL (0.00-0.30); CALCIUM LEVEL 7.1 MG/DL (8.5-10.1); CREATININE FOR GFR 1.66 MG/DL (0.70-1.30); GLOMERULAR FILTRATION RATE 55.9 (>60); POTASSIUM SERUM 3.5 MEQ/L (3.5-5.1); TOTAL PROTEIN 4.4 GM/DL (6.4-8.2)
[2019-02-12 06:05] LABS: ERYTHROCYTE SEDIMENTATION RATE 64 mm/hr (0-15)
[2019-02-12] MEDS: HEPARIN SOD (PORCINE) 5000 UNITS/ML VIAL SC SCH ×3 (06:39→21:12)
[2019-02-12] MEDS: CALCIUM CARBONATE 500 MG CHEW U/D PO SCH ×3 (06:57→21:11)
[2019-02-12] MEDS: CALCIUM GLUCONATE 1,000 MG in D5W MINI-BAG PLUS 100 ML IV SCH ×2 (06:58→08:27)
--- NOTE | 2019-02-12 07:07 | REP ---
Clinical: Pleural effusion. Comparison: 02/11/2019. Findings: Bibasilar infiltrates and small pleural effusions essentially unchanged. Mediastinum and cardiac silhouette are stable. Right IJ line with tip in the SVC. No pneumothorax. Skeletal structures stable. Impression: Bibasilar infiltrates and small pleural effusions essentially unchanged. Electronically Signed by Josh López MD 02/12/2019 06:59 A
[2019-02-12] MEDS ORDERED: FUROSEMIDE 20 MG/2 ML VIAL (J1940) IV ONE (07:45)
[2019-02-12 07:51] LABS: ATYPICAL LYMPH 1 % (0-5); BASOPHILS 1 % (0-1); LYMPHOCYTES 2 % (16-44); MONOCYTES 6 % (0-5); MYELOCYTES 1 % (0-0); NEUTROPHILS 83 % (28-66); PLATELET ESTIMATE DECREASED (NORMAL)
[2019-02-12 07:52] LABS: ANISOCYTOSIS 1+
[2019-02-12] MEDS: CLINDAMYCIN 900 MG in IV 1 EA IV SCH ×3 (08:27→21:12)
[2019-02-12] MEDS: VENLAFAXINE **XR** 75MG CAPSULE PO SCH (08:27)
[2019-02-12] MEDS: NYSTATIN 500,000 U/5 ML SUSP UDC SS SCH ×4 (08:27→21:12)
[2019-02-12] MEDS: DIMETHICONE 2% OINTMENT(VANIPLY) 70GM TUBE TOP SCH ×2 (08:28→21:12)
--- NOTE | 2019-02-12 09:40 | IPNPDOC ---
Text Note Date of Service The patient was seen on 02/12/19. NOTE SUBJECTIVE: Patient seen at bedside in the ICU. He has not required pressors since 9 AM yesterday. Lactic acid is down to 2.0, though his white count has increased. He continues on broad-spectrum IV antibiotics. His chest x-ray today is stable from yesterday, he continues with pulmonary infiltrates and a left-sided pleural effusion, which may be secondary to the amount of fluids that he received in combination with having sepsis. Patient still has discomfort to the left lower extremity along with swelling. The redness of his lower extremity has improved, and the indurated section and is starting to blister. He continues to make urine, and the color randi a light yellow. He states that he is only a little thirsty. His nausea has improved, and he did not have any emesis overnight. He didn't get very much sleep though, and he did become hypoxic requiring oxygen via nasal cannula. OBJECTIVE: Vitals: see below GENERAL: This is a young and fit male, who is sitting up in the ICU. He looks flushed and tired but is in no acute distress. He is pleasant and interactive HEENT: Head is atraumatic, normocephalic. Extraocular eye movements are intact. Eyes are clear, conjunctiva without pallor. Mucous membranes are moist, the tongue is not longer white. Flat and macular rash across the cheeks has faded. NECK: Supple. No lymphadenopathy. No jugular venous distention (JVD). No thyromegaly. No masses. CHEST: Diffuse pink, flat macular rash on the anterior chest has improved. Symmetric excursion. No accessory muscle usage to breathe, though breaths are more shallow today than they were yesterday. LUNGS: Clear to auscultation bilaterally in the apices. Mild bibasilar crackles appreciated, with E to A egophony still present in the left lower lobe. HEART: Tachycardiac with a heart rate around 112. Regular rhythm. No murmurs, gallops, or rubs. Point of maximal impulse mildly displaced to the left. ABDOMEN: Normoactive bowel sounds in all four quadrants. No tympany to percussion. No pain to palpation in all four quadrants. No masses, no splenomegaly. Nondistended. BACK: No rashes. Straight. Costovertebral angle (CVA) tenderness bilaterally. EXTREMITIES: Pulses are 2+ in all four extremities. Left leg is elevated, he still has difficulty flexing or extending at the knee. Pulses ate 2+ bilaterally for dorsalis pedis and posterior tibialis pulses SKIN: On the back of the patient's left leg in the popliteal fossa there con tinues to be an area of induration with surrounding erythema which is not as pronounced as it was yesterday. The area of induration in the center of the rash has a tiny, which could be a vesicle. There is no fluctuance appreciated nor any masses palpated below the area of erythema. The maculopapular rash on the patient's inner anterior thighs has resolved. The minor abrasions and blistering areas of the bilateral feet are healing. NEUROLOGIC: Sensation intact throughout. Reflexes not tested. Muscle strength 5/5 in all four extremities. PSYCHIATRIC: Answers questions appropriately. Affect is full. No pressured speech noted. LABORATORY DATA: CBC is stable at the moment, he continues to have an elevated white count of 37, however his bandemia has resolved Chemistry: Electrolytes imbalance, kidney function stable with a creatinine of 1.66. CRP decreased to 28.4. Serology: Syphilis nonreactive. Mononucleosis screen negative. Influenza A negative, influenza B negative. MRSA not detected. Anti-streptolysin O antibody done 02/11/19 was 22.7 (normal <214.0, more important is the trend this early in the disease process). HIV negative. Microbiology: Blood cultures times two negative so far. Group A streptococcus negative. Pro calcitonin 24. Urine culture negative Urine 02/11/19: Trace protein, positive blood, positive leukocyte esterase, 5-7 urine WBCs, small amount renal epithelial cells, small amount of urine mucus Chest x-ray ordered this morning is independently reviewed: I disagree with the radiologist's read, on the lateral there looks to be a meniscus suggesting pleural effusion in the left lower lobe consistent with either a egophony heard on exam, as well as the patient's symptom of orthopnea when laying in the left lateral decubitus position. Pneumonia would not show up that quickly. ASSESSMENT: This is a 23-year-old male being admitted to the hospital for sepsis secondary to left lower extremity cellulitis. Hosp Day#3, ICU Day #2, transferred overnight 02/10 due to hypotension requiring pressor support, this has not been needed since 0900 on 02/11. Broad-spectrum antibiotics, ABX Day #3. IV fluids discontinued 02/12/19 as blood pressure improved, IV Lasix given due to nocturnal hypoxia that may be related to fluid overload. PLAN: 1. Sepsis secondary to cellulitis. The patient received the 30 mL/kg bolus in the emergency department and continued aggressive fluid resuscitation. Despite this he had hypotension requiring transfer to the ICU overnight on 02/10, central line placement, and pressor therapy. Will continue treating with empiric antibiotic therapy, and pressors if blood pressure worsens. IV fluids discontinued 02/12/2019 due to crackles at the bases of the lungs, and suspected fluid overload (he will only get them with IV antibiotics unless his lactic acid worsens). Clinically he meets criteria for toxic shock syndrome, with a presenting fever (though it has not been recorded as greater than 102.0 Fahrenheit), diffuse macular erythroderma of the left popliteal fossa and surrounding areas, hypotension requiring pressors, vomiting with diarrhea at the onset of his illness, myalgias, pyuria, and a total bilirubin greater than 2 times the upper limit of normal. ASO only 22.7 (positive is >214), however we will redraw in 2-3 days to assess if there is a trend, as if this is toxic shock syndrome secondary to Streptococcus species, ASO would not be elevated this early (typical peak is 3-5 weeks after the onset of illness according to literature review). Clindamycin was added 02/11/19 for bacteriostatic properties as toxic shock syndrome is being considered. Fungal etiology work up pending. Clinically does not look like [address] spotted fever, or any rickettsial diseases. However his EKG did show an incomplete right bundle branch block, Lyme screen pending (incomplete RBBB could be due to right heart strain 2/2 sepsis as well). HIV was negative, syphilis was negative, mono screen was negative. Differential from his complete blood count does not support a viral cause. We are also working him up for immunodeficiency by looking at complements (c3a unable to be tested as the kits in the lab are ). Should infectious disease workup be unrevealing, we will pursue rheumatological causes. 2. Cellulitis of the left lower extremity. Continue with vancomycin and Zosyn for empiric coverage. Redness improving today. Tylenol and Motrin ordered for pain or fevers. Pending blood cultures and clinical improvement. Left lower extremity ultrasounds were negative for DVT, however there was an incidental dull inguinal node measuring up to 5.4 cm in maximal diameter, otherwise there was only subcutaneous edema seen in the popliteal fossa. Dr. Yu from orthopedics was consulted due to increased swelling yesterday afternoon, and he does not think the patient requires immediate surgery (low risk for compartment syndrome or need for necrotizing fasciitis at this time given broad spectrum antibiotic therapy), appreciate his help. 3. Acute kidney injury. Renal function stable at this time. Most likely secondary to sepsis from his underlying infection. Differential would also i nclude post-streptococcal or post-infectious glomerulonephritis, or ATN. Previous creatinine in 04.01. Should likely resolve with treatment of the underlying infection. One dose of IV Lasix 20 mg ordered due to volume overload. If the patient becomes oliguric, we will consult nephrology. 4. Tachycardia, improving. Most likely due from his infectious process. Echocardiogram was ordered, as his EKG showed an incomplete right bundle-branch branch block along with sinus tachycardia, which he did not have in July. Will repeat his EKG when he is not tachycardiac to see if this resolves. Echocardi ogram showed borderline enlarged left ventricle with an ejection fraction between 65-70%, as well as a mildly enlarged right atrium and right ventricle with normokinetic movement, suspicion for PFO (which may require a bubble study at a later date), as well as small pericardial effusion without evidence of cardiac tamponade. By Doppler he also had mild mitral regurgitation, trace to mild tricuspid regurgitation and trace pulmonic regurgitation with a calculated pulmonary artery systolic pressure at about 30 mmHg. This may be due to fluid overload. 5. Nocturnal hypoxia. May be due to pulmonary edema secondary to fluid overload, sepsis, or anemia from aggressive fluid resuscitation. For right now we will continue with supportive oxygen to maintain his saturation greater than 92%. If this persists after the resolution of his underlying infection, then will revisit for further evaluation. 6. Anxiety and depression. Mood stable. Continue with home Effexor. 7. Deep vein thrombosis (DVT) prophylaxis. Heparin. DISPOSITION: Expect extended stay. The patient will stay in ICU until he is more stable Attending Attestation: I have personally evaluated and examined the patient. Discussed with residents and student regarding plan of care and agree with the above assessment and plan. VS,Fishbone, I+O VS, Fishbone, I+O Laboratory Tests 02/11/19 17:22 02/12/19 05:00 Vital Signs Date Time Temp Pulse Resp B/P (MAP) Pulse Ox O2 Delivery O2 Flow Rate FiO2 02/12/19 08:00 98.5 112 24 100/59 (73) 93 Room Air 02/12/19 06:00 1.0 I&O- Last 24 Hours up to 6 AM 02/12/19 06:00 Intake Total 6177.4 ml Output Total 3500 ml Balance 2677.4 ml GME ATTESTATION GME ATTESTATION My faculty preceptor for this patient encounter was physically present during the encounter and was fully available. All aspects of the patient interview, examination, medical decision making process, and medical care plan development were reviewed and approved by the faculty preceptor. The faculty preceptor is aware and concurs with the plan as stated in the body of this note and will attest to such by his/her cosignature. IVAN BRENNAN D.O. Feb 12, 2019 09:40 MYLES ESTRELLA MD Feb 12, 2019 12:10
--- NOTE | 2019-02-12 09:54 | HPE ---
DATE OF ADMISSION: 02/12/2019 CHIEF COMPLAINT: Left leg cellulitis. 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 This was on 02/10/2019, now 2 days ago. He says that this all started back on Thursday about 5 days ago now. He is doing some training, and he thinks that perhaps his left posterior knee got scratched. This progressed in terms of redness and swelling, as well as constitutional symptoms. He was admitted to hospital and to the hospitalists and started on antibiotics. He states that it is a little bit better today. I was consulted for the left leg cellulitis. PAST MEDICAL HISTORY: Anxiety and depression. MEDICATIONS: - Effexor No known drug allergies. SURGICAL HISTORY: None. FAMILY HISTORY: Noncontributory. SOCIAL HISTORY: He has been in the [employer] for 3 years. He does not smoke or use alcohol or drugs. He is unmarried. PHYSICAL EXAMINATION: Vital signs: Temperature 98.5. Pulse rate 115. Blood pressure 92/51. 91% on 1 liter nasal prongs. Respiratory rate 22. He appears overall well and nontoxic. He is alert and oriented times three. He responds appropriately to questions. Inspection of the lower extremities reveal an area of erythematous warm cellulitis-appearing tissue posteriorly to his left knee. There is an oval area overall that measures approximately 12 inches from proximal to distal and medial to lateral about 6 inches. There is no knee joint effusion. Passive and active range of motion of the knee reveals no obvious knee pain or signs of septic arthritis. He has pain to light touch of the red area, and it blanches with touch. Normal sensation in both his feet to the superficial and deep peroneal nerves, as well as saphenous, sural, and tibial. Good pedal pulses. Feet are warm and well perfused. He is able wiggle his toes, dorsiflex and plantarflex foot. Compartments are soft in the lower extremity, as well as the thighs on both sides. No concern for compartment syndrome. No pain with passive stretch. No pain at the hip or ankle. LABORATORY EXAMINATION: Revealed high white blood cell count anywhere between 31-36. His ESR is 53-64. His CRP has not been drawn. Syphilis serology nonreactive. [place] screen negative. HIV negative. Influenza negative. MRSA not detected. Urine culture shows no growth. Blood cultures reveal no growth after 24 hours. Throat culture is negative for Streptococcus pyogenes group A. Knee x-ray shows normal examination. No acute fracture or dislocation. CURRENT MEDICATIONS: Include: - vancomycin every 8 hours intravenous (IV) - clindamycin phosphate every 8 hours IV - nystatin - piperacillin/tazobactam every 6 hours IV ASSESSMENT AND PLAN: A 23-year-old man who appears to have a severe left knee cellulitis. I have no concern for compartment syndrome or a septic joint. I think the best course of action in agreement with the hospitalist is to treat with intravenous antibiotics. One could consider infectious disease consult to help with tailor his antibiotics. In addition, I would recommend following along with C-reactive protein (CRP) testing every 1-2 days in addition to the erythrocyte sedimentation rate (ESR) that has already been tested for in order to ensure he is having a good clinical response to the antibiotics. I will follow every 1-2 days while he is in hospital to ensure that this is resolving. Thank you very much for involving me in this young man's care.
[2019-02-12] MEDS: METOCLOPRAMIDE INJ 10MG/2ML VIAL (J2765) IV PRN (10:49)
[2019-02-12 12:40] LABS: VANCOMYCIN LEVEL TROUGH 14.5 UG/ML (10.0-20.0)
--- NOTE | 2019-02-12 12:50 | PHACANCOPD ---
PHARMACY VANCOMYCIN DOSING Pt Demographics Demographics Patient Age:23 , Weight:86.200 , Gender: male Adjusted Body Weight Date: 02/11/19, Adjusted Body Weight: Kg Events Past 24 Hours Events Past 24 Hours: YES: Elevation in WBC; NO: Dialysis, Diuretic Therapy, Change in CrCl, Fever, Pending Diagnostics, Pending Procedures, Other Vancomycin Vancomycin indication: cellulitis/sepsis Vancomycin Target Ranges: 15-20 mcg/ml Vancomycin Load Y/N: Yes Load Dose Date Time Vancomycin Load Dose: 1000mg Date: 02/10 Time: ~1230 Vancomycin Dose Date: 02/12/19. Current Vancomycin Dose: [1g IV q12h @18] Date: 02/11/19. Current Vancomycin Dose: [1g IV Q8H @20] Date: 02/10/19. Current Vancomycin Dose: [1g IV q12h @18] Intermittent Dosing?: No Labs Labs Item Value Date Time Vancomycin Level Trough 14.5 UG/ML 02/11/19 1722 Vancomycin Level Trough 26.7 UG/ML *H 02/12/19 1053 Creatinine 1.68 MG/DL H 02/11/19 1722 Creatinine 1.66 MG/DL H 02/12/19 0500 White Blood Count 36.3 10^3/uL *H 02/11/19 0505 White Blood Count 34.7 10^3/uL *H 02/11/19 1722 White Blood Count 36.8 10^3/uL *H 02/12/19 0500 Micro Microbiology 02/11/19 Urine Culture - Final, Complete 02/10/19 Blood Culture - Preliminary, Resulted No Growth after 48 hours. All Specime... 02/10/19 Group A Streptococcus Screen (SAMRA) - Final, Complete 02/10/19 Blood Culture - Preliminary, Resulted No Growth after 48 hours. All Specime... Creatinine Clearance Date:02/11/19. Creatinine Clearance: [~60 ml/min]. Pending Labs Vanco trough scheduled 02/13 @05:00 Assessment and Plan Maintaining Current Dose?: No Reason for dose change: Trough too high, Significant event (trough from 02/11 was re-run, changed from 1 to 14.5 mcg/ml) Pharmacist Note Pharmacist Note Date: 02/12/19. Pharmacist note: pt is currently on day #3 of vancomycin/Zosyn treatment, day #2 of clindamycin. Last evening, his vancomycin level was drawn and resulted in 1mcg/ml. I had changed his dosing to 1g IV q8h. Today, that blood sample was rechecked and the trough yesterday was actually 14.5 mcg/ml. Repeat vancomycin trough at ~1 hour prior to q8h dosing x2 doses was 26.7 mcg/ml. I have reduced his dosing back to 1g IV q12h. SCr is mildly improved today, IVF has been stopped. WBCs are still trending up. Cultures have been NGTD. I have scheduled another trough for tomorrow morning. We will continue to monitor and make adjustments as necessary. Date: 02/11/19. Pharmacist note: pt has been started on Zosyn and Vancomycin for cellulitis/sepsis. He also received Clindamycin 900mg IV yesterday afternoon x1 dose. His SCr remains elevated, has been receiving NS @100 ml/hr and also required Levophed last evening. He has not been on vancomycin at our facility in the past. He received his first vancomycin 1g dose in the ER yesterday around noon, followed by 1g q12h dosing to begin ~6 hours later. I have a trough scheduled this afternoon before the 18:00 dose. Cultures are pending. We will continue to monitor and make adjustments as necessary. Wisam Munoz Pharm.D. Feb 12, 2019 12:50
[2019-02-13] VITALS (11 sets, daily range): BP systolic 96–111; BP diastolic 51–61
[2019-02-13] MEDS: NS 1,000 ML IV SCH (04:01)
[2019-02-13] MEDS: PIPERACILLIN/TAZOBACTAM SOD 3.375 GM in D5W MINI-BAG PLUS 50 ML IV SCH ×4 (04:01→22:09)
[2019-02-13] MEDS: CALCIUM CARBONATE 500 MG CHEW U/D PO SCH ×3 (05:32→21:09)
[2019-02-13] MEDS: CLINDAMYCIN 900 MG in IV 1 EA IV SCH ×3 (05:33→21:10)
[2019-02-13] MEDS: HEPARIN SOD (PORCINE) 5000 UNITS/ML VIAL SC SCH ×3 (05:33→21:09)
[2019-02-13 05:50] LABS: HEMATOCRIT 32.9 % (42.0-52.0); HEMOGLOBIN 11.6 g/dl (13.5-17.5); MEAN CORPUSCULAR HEMOGLOBIN 30.9 pg (27.0-33.0); MEAN CORPUSCULAR HGB CONC 35.3 g/dl (32.0-36.5); MEAN CORPUSCULAR VOLUME 87.5 fl (80.0-96.0); PLATELET COUNT, AUTOMATED 134 10^3/uL (150-450); RED BLOOD COUNT 3.76 10^6/uL (4.30-6.10); WHITE BLOOD COUNT 28.7 10^3/uL (4.0-10.0)
[2019-02-13 06:03] LABS: ALBUMIN 1.5 GM/DL (3.2-5.2); BILIRUBIN,TOTAL 1.7 MG/DL (0.2-1.0); CALCIUM LEVEL 7.2 MG/DL (8.5-10.1); CREATININE FOR GFR 1.68 MG/DL (0.70-1.30); GLOMERULAR FILTRATION RATE 55.2 (>60); POTASSIUM SERUM 3.1 MEQ/L (3.5-5.1); TOTAL PROTEIN 4.5 GM/DL (6.4-8.2)
[2019-02-13 06:42] LABS: VANCOMYCIN LEVEL TROUGH 16.1 UG/ML (10.0-20.0)
[2019-02-13] MEDS: VANCOMYCIN HCL 1,000 MG, VIAL MATE ADAPTER 1 EACH in D5W 250 ML IV SCH ×2 (06:44→18:36)
--- NOTE | 2019-02-13 08:35 | REP ---
Clinical: Dyspnea and fevers. Technique: PA and lateral. Comparison: 02/12/2019. Findings: Bilateral lower lobe infiltrates with small pleural effusions (left greater than right) essentially unchanged from prior examination. Cardiac silhouette is stable. No pneumothorax. Right IJ line with tip in the SVC. Double structures intact. Impression: Stable bibasilar infiltrates and pleural effusions. Electronically Signed by Josh López MD 02/13/2019 08:26 A
[2019-02-13] MEDS: VENLAFAXINE **XR** 75MG CAPSULE PO SCH (09:14)
[2019-02-13] MEDS: NYSTATIN 500,000 U/5 ML SUSP UDC SS SCH ×4 (09:14→21:09)
[2019-02-13] MEDS: DIMETHICONE 2% OINTMENT(VANIPLY) 70GM TUBE TOP SCH ×2 (09:14→21:10)
--- NOTE | 2019-02-13 09:49 | IPNPDOC ---
Date Seen The patient was seen on 02/13/19. Progress Note SUBJECTIVE: Patient reports feeling better. LE erythema had improved. HR now in low 100s, even into high 90s at rest. BP remained stable SBP 90-100s. Pressor remains off. OBJECTIVE PHYSICAL EXAMINATION: VITAL SIGNS: Please see below. General: No acute distress, Alert Eyes: Normal sclera, EOMI, GERSON HENT: Atraumatic Cardiovascular: Tachycardia, normal rhythm. Pulmonary: Clear to auscultation b/l, no wheezing GI: Soft, nontender, nondistended Skin: Warm and dry. L. popliteal fossa erythema with 2 small vesicular blisters, mild induration but no crepitus. Small region of erythema on superior anteromedial surface of L. knee. Neuro: CN grossly intact. No focal deficits. Strengths equal b/l. Psych: oriented x 3 LABORATORY DATA, IMAGING STUDIES, MICROBIOLOGY: Please see below. DVT prophylaxis ordered?: HSQ ASSESSMENT AND PLAN: 1. Sepsis 2/2 soft tissue infection of LLE - Improving. HR trending down, leukocytosis trending down with resolution of lactic acidosis. - s/p 30cc/kg IVF bolus and broad spectrum antibiotics, pressor remains off for about 48 hours. - Erythema improving. Blood cultures so far negative after 48 hours. DVT ruled out. - CT LLE shows soft tissue edema but no evidence of gas. No crepitus on exam. - Seen by Orthopedic surgery. No strong suspicion for compartment syndrome or septic joint. - Will consult ID to discuss abx de-escalation given negative cultures so far, although patient still has significant leukocytosis and tachycardic, would not [place] narrowing abx until further improvement or discussion with ID. - Concern for toxic shock syndrome. ASO 22.7 on presentation, to repeat. - HIV, syphylis negative. 2. JESSENIA - 2/2 sepsis on presentation. IVF support but will turn off today given evidence of fluid overload. - continue to monitor kidney function. 3. Nocturnal hypoxia - in setting of fluid overload, improved post lasix dose. - Saturating well currently. monitor sat. VS, I&O, 24H, Fishbone Vital Signs/I&O Vital Signs Date Time Temp Pulse Resp B/P (MAP) Pulse Ox O2 Delivery O2 Flow Rate FiO2 02/13/19 06:00 103 23 108/56 (73) 93 Nasal Cannula 1.0 02/13/19 04:00 98.9 I&O- Last 24 Hours up to 6 AM 02/13/19 06:00 Intake Total 6630 ml Output Total 5700 ml Balance 930 ml Laboratory Data 24H LABS Laboratory Tests 2 02/12/19 10:53: Vancomycin Level Trough 26.7*H 02/12/19 15:28: Lactic Acid Level 2.1*H 02/12/19 19:35: Lactic Acid Followup at 4 Hours 1.6 02/13/19 05:21: Vancomycin Level Trough 16.1, Nucleated Red Blood Cells % (auto) 0.0, Anion Gap 8, Glomerular Filtration Rate 55.2L, Calcium Level 7.2L, Total Bilirubin 1.7H, Aspartate Amino Transf (AST/SGOT) 40H, Alanine Aminotransferase (ALT/SGPT) 44, Alkaline Phosphatase 129H, Total Protein 4.5L, Albumin 1.5L, Albumin/Globulin Ratio 0.50L CBC/BMP Laboratory Tests 02/13/19 05:21 Microbiology Microbiology 02/11/19 Urine Culture - Final, Complete 02/10/19 Blood Culture - Preliminary, Resulted No Growth after 48 hours. All Specime... 02/10/19 Group A Streptococcus Screen (SAMRA) - Final, Complete 02/10/19 Blood Culture - Preliminary, Resulted No Growth after 48 hours. All Specime... MYLES ESTRELLA MD Feb 13, 2019 09:49
[2019-02-13] MEDS ORDERED: POTASSIUM CHLORIDE 10 MEQ SR TABLET PO ONE ×2 (20:45→21:00)
[2019-02-14] VITALS (7 sets, daily range): BP systolic 105–143; BP diastolic 55–65
[2019-02-14] MEDS: PIPERACILLIN/TAZOBACTAM SOD 3.375 GM in D5W MINI-BAG PLUS 50 ML IV SCH ×2 (04:04→10:55)
[2019-02-14 04:22] LABS: HEMATOCRIT 34.8 % (42.0-52.0); HEMOGLOBIN 11.9 g/dl (13.5-17.5); MEAN CORPUSCULAR HEMOGLOBIN 30.4 pg (27.0-33.0); MEAN CORPUSCULAR HGB CONC 34.2 g/dl (32.0-36.5); PLATELET COUNT, AUTOMATED 108 10^3/uL (150-450); RED BLOOD COUNT 3.91 10^6/uL (4.30-6.10); WHITE BLOOD COUNT 29.5 10^3/uL (4.0-10.0)
[2019-02-14 04:49] LABS: ALBUMIN 1.5 GM/DL (3.2-5.2); BILIRUBIN,TOTAL 1.1 MG/DL (0.2-1.0); CALCIUM LEVEL 7.1 MG/DL (8.5-10.1); CREATININE FOR GFR 1.77 MG/DL (0.70-1.30); MAGNESIUM LEVEL 2.3 MG/DL (1.8-2.4); POTASSIUM SERUM 3.1 MEQ/L (3.5-5.1); TOTAL PROTEIN 4.8 GM/DL (6.4-8.2)
[2019-02-14] MEDS: VANCOMYCIN HCL 1,000 MG, VIAL MATE ADAPTER 1 EACH in D5W 250 ML IV SCH (05:16)
[2019-02-14] MEDS ORDERED: POTASSIUM CHLORIDE 10 MEQ SR TABLET PO ONE (06:00)
[2019-02-14] MEDS: CALCIUM CARBONATE 500 MG CHEW U/D PO SCH ×3 (06:23→21:11)
[2019-02-14] MEDS: HEPARIN SOD (PORCINE) 5000 UNITS/ML VIAL SC SCH ×3 (06:23→21:13)
[2019-02-14] MEDS: CLINDAMYCIN 900 MG in IV 1 EA IV SCH ×3 (06:23→21:09)
[2019-02-14 07:44] LABS: C REACTIVE PROTEIN QUANTITATIV 11.1 MG/DL (0.00-0.30)
[2019-02-14] MEDS: NYSTATIN 500,000 U/5 ML SUSP UDC SS SCH ×4 (09:35→21:09)
[2019-02-14] MEDS: VENLAFAXINE **XR** 75MG CAPSULE PO SCH (09:35)
[2019-02-14] MEDS: DIMETHICONE 2% OINTMENT(VANIPLY) 70GM TUBE TOP SCH ×2 (09:36→21:13)
--- NOTE | 2019-02-14 10:14 | IPNPDOC ---
Text Note Date of Service The patient was seen on 02/14/19. NOTE SUBJECTIVE: Patient seen at bedside in PCU. He has not required pressors. WBC improving slowly. He continues on broad-spectrum IV antibiotics. His chest x-ray has been stable, he continues with pulmonary infiltrates and a left-sided pleural effusion, which may be secondary to the amount of fluids that he received in combination with having sepsis. He continues to make urine, output yesterday was 3325 mLs, with a positive balance of 995. He has been able to eat small amounts. Patient still has discomfort to the left lower extremity along with swelling. The redness of his lower extremity has improved, and the indurated section is starting to blister. He states that he is only a little thirsty. His nausea has improved, and he has not had any episodes of emesis in a few days. He has not needed oxygen, denies shortness of breath. Heart rate has improved, he noticed that he was in the 80s last night. OBJECTIVE: Vitals: see below GENERAL: This is a young and fit male, who is sitting up in bed in the PCU. He looks tired but is in no acute distress. He is pleasant and interactive HEENT: Head is atraumatic, normocephalic. Extraocular eye movements are i ntact. Eyes are clear, conjunctiva without pallor. Mucous membranes are moist. NECK: Supple. No lymphadenopathy. No jugular venous distention (JVD). No thyromegaly. No masses. Right jugular central line in place without surrounding erythema. CHEST: Symmetric excursion. No accessory muscle usage to breathe. LUNGS: Clear to auscultation bilaterally in the apices. Mild bibasilar crackles appreciated, with E to A egophony still present in the left lower lobe. HEART: Regular rate and rhythm; not tachycardic. No murmurs, gallops, or rubs. ABDOMEN: Normoactive bowel sounds in all four quadrants. No tympany to percussion. No pain to palpation in all four quadrants. No masses, no spl enomegaly. Nondistended. BACK: No rashes. Straight. Costovertebral angle (CVA) tenderness bilaterally. EXTREMITIES: Pulses are 2+ in all four extremities. Left leg is elevated, active range of motion has increased 4 flexing or extending at the knee. Pulses ate 2+ bilaterally for dorsalis pedis and posterior tibialis pulses SKIN: On the back of the patient's left leg in the popliteal fossa there continues to be an area of induration with surrounding erythema which is not as pronounced as it was yesterday. The area of induration in the center of the rash has a tiny, which could be a vesicle. There is no fluctuance appreciated nor any masses palpated below the area of erythema. The maculopapular rash on the patient's inner anterior thighs has resolved. The minor abrasions and blisterin g areas of the bilateral feet are healing. NEUROLOGIC: Sensation intact throughout. Reflexes not tested. Muscle strength 5/5 in all four extremities. PSYCHIATRIC: Answers questions appropriately. Affect is full. No pressured speech noted. LABORATORY DATA: CBC improving. Chemistry: Mild hypo-kalemia. Renal function is stable. CRP decreasing Serology: Syphilis nonreactive. Mononucleosis screen negative. Influenza A negative, influenza B negative. MRSA not detected in the nares. Anti-s treptolysin O antibody done 02/11/19 was 22.7, ASO done today 440. Microbiology: Blood cultures times two negative. Group A streptococcus negative. Pro calcitonin 24. Urine culture negative. Throat culture negative. Urine 02/11/19: Trace protein, positive blood, positive leukocyte esterase, 5-7 urine WBCs, small amount renal epithelial cells, small amount of urine mucus Chest x-rays appear stable. ASSESSMENT: This is a 23-year-old male admitted to the hospital for sepsis secondary to left lower extremity cellulitis. Hospital Day#5, pressor support has not been needed since 0900 on 02/11. Broad-spectrum antibiotics, ABX Day #5. IV fluids discontinued 02/12/19 as blood pressure improved. PLAN: 1. Sepsis secondary to cellulitis. The patient received the 30 mL/kg bolus in the emergency department and continued aggressive fluid resuscitation. Despite this he had hypotension requiring transfer to the ICU overnight on 02/10, central line placement, and pressor therapy. Will continue treating with empiric antibiotic therapy.. IV fluids discontinued 02/12/2019 due to crackles at the bases of the lungs, and suspected fluid overload (he will only get them with IV antibiotics). Clinically he meets criteria for toxic shock syndrome, with a presenting fever (though it has not been recorded as greater than 102.0 Fahrenheit), diffuse macular erythroderma of the left popliteal fossa and surrounding areas, hypotension requiring pressors, vomiting with diarrhea at the onset of his illness, myalgias, pyuria, and a total bilirubin greater than 2 times the upper limit of normal. ASO on 02/14/19 was 22.7 (positive is >214), however repeat today is 440. Clindamycin was added 02/11/19 for bacteriostatic properties. Fungal etiology work up pending. Clinically does not look like [place] spotted fever, or any rickettsial diseases. However his EKG did show an incomplete right bundle branch block, Lyme screen pending (incomplete RBBB could be due to right heart strain 2/2 sepsis as well). HIV was negative, syphilis was negative, mono screen was negative. Differential from his complete blood count does not support a viral cause. We are also working him up for immunodeficiency by looking at complements (c3a unable to be tested as the kits in the lab are ). 2. Cellulitis of the left lower extremity, improving. Continue with vancomycin and Zosyn for empiric coverage. Tylenol and Motrin ordered for pain or fevers. Blood cultures negative. Left lower extremity ultrasounds were negative for DVT, however there was an incidental dull inguinal node measuring up to 5.4 cm in maximal diameter, otherwise there was only subcutaneous edema seen in the popliteal fossa. Dr. Yu from orthopedics was consulted due to increased swelling yesterday afternoon, and he did not think the patient requires immediate surgery (low risk for compartment syndrome or need for necrotizing fasciitis at this time given broad spectrum antibiotic therapy), appreciate his help. Dr. Ortiz from infectious disease consulted for antibiotic therapy de- escalation as patient has suspected toxic shock syndrome. 3. Acute kidney injury. Renal function stable at this time. Most likely secondary to sepsis from his underlying infection. Differential would also include post-streptococcal or post-infectious glomerulonephritis, or ATN. Previous creatinine in July 14.17. Should likely resolve with treatment of the underlying infection, may take 8+ weeks. If the patient becomes oliguric, we will consult nephrology. 4. Tachycardia, improving. Most likely due from his infectious process. Echocardiogram was ordered, as his EKG showed an incomplete right bundle-branch branch block along with sinus tachycardia, which he did not have in July. May repeat his EKG when he is not tachycardiac to see if this resolves. Echocardiogram showed borderline enlarged left ventricle with an ejection fraction between 65-70%, as well as a mildly enlarged right atrium and right ventricle with normokinetic movement, suspicion for PFO (which may require a bubble study at a later date), as well as small pericardial effusion without evidence of cardiac tamponade. By Doppler he also had mild mitral regurgitation, trace to mild tricuspid regurgitation and trace pulmonic regurgitation with a calculated pulmonary artery systolic pressure at about 30 mmHg. This may be due to fluid overload. 5. Nocturnal hypoxia, resolving, has not needed O2 supplementation since 02/13. May be due to pulmonary edema secondary to fluid overload, sepsis, or anemia from aggressive fluid resuscitation. For right now we will continue with supportive oxygen to maintain his saturation greater than 92%. If this persists after the resolution of his underlying infection, then will revisit for further evaluation. 6. Anxiety and depression. Mood stable. Continue with home Effexor. 7. Deep vein thrombosis (DVT) prophylaxis. Heparin. DISPOSITION: Pending antibiotic de-escalation, physical therapy evaluation. Potentially home in the next 24-48 hours. VS,Fishbone, I+O VS, Fishbone, I+O Laboratory Tests 02/14/19 04:03 Vital Signs Date Time Temp Pulse Resp B/P (MAP) Pulse Ox O2 Delivery O2 Flow Rate FiO2 02/14/19 07:55 98.8 92 18 120/64 (82) 95 Room Air 02/13/19 06:00 1.0 I&O- Last 24 Hours up to 6 AM 02/14/19 06:00 Intake Total 4520 ml Output Total 3275 ml Balance 1245 ml GME ATTESTATION E ATTESTATION My faculty preceptor for this patient encounter was physically present during the encounter and was fully available. All aspects of the patient interview, ex amination, medical decision making process, and medical care plan development were reviewed and approved by the faculty preceptor. The faculty preceptor is aware and concurs with the plan as stated in the body of this note and will attest to such by his/her cosignature. ATTENDING NOTE I have personally evaluated and examined the patient. Discussed with residents and student regarding plan of care and agree with the above assessment and plan. IVAN BRENNAN D.O. Feb 14, 2019 10:14 MYLES ESTRELLA MD Feb 14, 2019 13:43
[2019-02-14] MEDS ORDERED: SLF 3 ML SYR IV PRN (10:45)
[2019-02-14] MEDS: ACETAMINOPHEN TAB 650MG DOSE (2X325MG) PO PRN (11:07)
[2019-02-14] MEDS: LACTOBACILLUS ACIDOPHILUS CAP (BACID) PO SCH ×2 (13:25→19:07)
[2019-02-14] MEDS: SLF 3 ML SYR IV SCH ×2 (17:16→21:14)
--- NOTE | 2019-02-14 18:08 | CR ---
DATE OF CONSULTATION: 02/14/2019 CONSULTATION REPORT FOR: Dr. Adams REASON FOR CONSULTATION: Evaluation of left lower extremity cellulitis with septic shock. 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 The patient stated that his symptoms had started about five days prior to admission with severe achiness and fever. He thought he had the flu but then he developed left leg pain and swelling. He went to see his troop medics and they recommended to use Motrin for fever and to help with a sprain in his leg. The patient got progressively worse. He developed severe night sweats, body aches, fever, and therefore asked his roommate to bring him to the hospital. He was tested for the flu, that was negative and he had a flu shot last month. He denied any headache. He had some dizziness, some diarrhea and nausea, a mild cough and decreased appetite. He was treated at [facility] with Levophed for hypotension. He had IV vancomycin, Zosyn, and clindamycin for presumed toxic shock and cellulitis. He was transferred from the intensive care unit (ICU) this morning to progressive care unit (PCU) and doing much better. His leg pain has improved. He is able to walk on it. His C-reactive protein (CRP) and white count have improved. His CRP was 44 and white count was up to 31,000. PAST MEDICAL HISTORY: Significant for anxiety and depression. He was seen at the emergency room (ER) for suicide ideation in July of 2018. PAST SURGICAL HISTORY: Negative. FAMILY HISTORY: Negative. SOCIAL HISTORY: He has been in the [employer] for three years. He is originally from [place]. He has traveled to [facility], [place], [place], and [place]. He denies having any pets. No children. No girlfriend. REVIEW OF SYSTEMS: He had fevers and sweats. He has weight gain, some headaches. He had nausea and vomiting but that has resolved. He has no chest pain, paroxysmal nocturnal dyspnea (PND), or orthopnea. He has a mild cough. He has a peeling rash on both feet that has been going on for over a month. PHYSICAL EXAMINATION: Pleasant, healthy-looking gentleman in no acute distress. Temperature is 97.9, pulse 90, respirations 18, blood pressure 105/58, oxygen saturation 96% on room air. His systolic blood pressure on admission was down to 74/50. LABORATORY DATA: White count 29.5 down from 36.8, hemoglobin 11.9, hematocrit 34.8, platelets 108. ESR 64. Sodium 142, potassium 3.1, chloride 105, bicarbonate 28, BUN 24, creatinine 1.7, glucose 106, calcium 7.1, phosphorus 2.3, magnesium 1.1, AST 30, ALT 30, alkaline phosphatase 135, AST was up to 44, CRP 44.1 down to 11.1. Blood cultures, two sets were negative. Throat culture was negative for Streptococcus. Urine culture was negative. ASO titer has increased from 22.7 to 440. Influenza A and B were negative. MRSA screen was negative. Lyme serology, Coccidioides blastomyces serology were sent and pending. Chest x-ray done on 02/13/2019 shows stable bibasilar infiltrates and pleural effusion. I suspect this is all fluid overload. Extremity CT done without contrast showed soft tissue edema, small knee joint effusion, edema in the fascial planes within the distal thigh and proximal calf. PHYSICAL EXAMINATION: HEART: Normal S1, S2. No murmurs, rubs or gallops. LUNGS: Clear. No wheezes, rales, or rhonchi. ABDOMEN: Soft, nontender. No hepatosplenomegaly. BACK: No costovertebral angle (CVA) or lumbosacral tenderness. EXTREMITIES: Both feet are dry, scaly with athlete's foot between the toes. Left leg has erythema along the calf, popliteal fossa up to mid thigh. There is a shotty left inguinal adenopathy that is nontender. Slight tenderness of the erythematous area that has definitely receded compared to pictures that have been taken of his leg. He has a small blister behind the calf in the popliteal fossa that has drained. There is minimal serous drainage. IMPRESSION: This is a 23-year-old gentleman with tenia pedis, both feet who is admitted with severe cellulitis of the left leg, toxic shock, sounds to me like Streptococcal toxic shock more than Staphylococcus aureus. His methicillin-resistant Staphylococcus aureus (MRSA) screen was negative so it is not MRSA. The patient has clinically improved with broad-spectrum antibiotics. He still has acute kidney injury with an elevated creatinine of 1.7. MEDICATIONS: - probiotics one tablet by mouth three times a day - vancomycin 1 gram IV every 12 hours - clindamycin 900 mg IV every eight hours - Nystatin 5 mL four times a day - venlafaxine 75 mg by mouth daily - metoclopramide 5 mg IV every six hours as needed - simethicone as needed - dimethicone one dose twice a day - Tylenol as needed - Zosyn 3.375 grams IV every six hours PLAN: Discontinue IV vancomycin and Zosyn. Continue with IV clindamycin at a dose of 900 mg every eight hours. If tomorrow the patient continues to improve with decreased white count then the patient could be switched to clindamycin 300 mg by mouth four times a day. This is most likely Streptococcal toxic shock. The portal of entry could have been his feet. He has tenia pedis and therefore he needs to be treated with Lotrimin twice a day for three weeks. [place] this has been a recurrent problem. Thank you for the consultation.
[2019-02-14] MEDS ORDERED: CLOTRIMAZOLE 1% TOPICAL CREAM 30GM TOP SCH (21:00)
[2019-02-14] MEDS ORDERED: MICONAZOLE 2 % POWDER (DESENEX) TOP SCH (21:00)
[2019-02-14] MEDS: CLOTRIMAZOLE 1% TOPICAL CREAM 30GM TOP SCH (21:09)
[2019-02-15] VITALS: BP 139/82
[2019-02-15 04:00] VITALS: BP 151/85
[2019-02-15 06:04] LABS: HEMATOCRIT 39.1 % (42.0-52.0); HEMOGLOBIN 12.9 g/dl (13.5-17.5); MEAN CORPUSCULAR HEMOGLOBIN 30.1 pg (27.0-33.0); MEAN CORPUSCULAR VOLUME 91.4 fl (80.0-96.0); PLATELET COUNT, AUTOMATED 122 10^3/uL (150-450); RED BLOOD COUNT 4.28 10^6/uL (4.30-6.10); WHITE BLOOD COUNT 25.9 10^3/uL (4.0-10.0)
[2019-02-15 06:19] LABS: ALBUMIN 1.7 GM/DL (3.2-5.2); BILIRUBIN,TOTAL 0.7 MG/DL (0.2-1.0); CALCIUM LEVEL 7.8 MG/DL (8.5-10.1); CREATININE FOR GFR 1.58 MG/DL (0.70-1.30); GLOMERULAR FILTRATION RATE 59.2 (>60); POTASSIUM SERUM 3.5 MEQ/L (3.5-5.1); TOTAL PROTEIN 6.1 GM/DL (6.4-8.2)
[2019-02-15] MEDS: CLINDAMYCIN 900 MG in IV 1 EA IV SCH (06:22)
[2019-02-15] MEDS: HEPARIN SOD (PORCINE) 5000 UNITS/ML VIAL SC SCH (06:22)
[2019-02-15] MEDS: SLF 3 ML SYR IV SCH (06:23)
[2019-02-15] MEDS: CALCIUM CARBONATE 500 MG CHEW U/D PO SCH (06:23)
[2019-02-15] MEDS: ACETAMINOPHEN TAB 650MG DOSE (2X325MG) PO PRN (06:23)
[2019-02-15 08:00] VITALS: BP 134/70
[2019-02-15] MEDS: NYSTATIN 500,000 U/5 ML SUSP UDC SS SCH ×2 (08:41→12:04)
[2019-02-15] MEDS: LACTOBACILLUS ACIDOPHILUS CAP (BACID) PO SCH ×2 (08:41→12:03)
[2019-02-15] MEDS: VENLAFAXINE **XR** 75MG CAPSULE PO SCH (08:41)
[2019-02-15] MEDS: DIMETHICONE 2% OINTMENT(VANIPLY) 70GM TUBE TOP SCH (08:42)
[2019-02-15] MEDS: CLOTRIMAZOLE 1% TOPICAL CREAM 30GM TOP SCH (08:42)
[2019-02-15] MEDS ORDERED: CLOTR1CR TOP (10:27)
[2019-02-15] MEDS ORDERED: RISATAB3 PO (10:27)
[2019-02-15] MEDS ORDERED: CLIN150C14 PO (10:27)
--- NOTE | 2019-02-15 11:20 | DSES ---
DATE OF ADMISSION: 02/10/2019 DATE OF DISCHARGE: 02/15/2019 DISCHARGE DIAGNOSES: 1. Toxic shock syndrome from Streptococcus species. 2. Septic shock. 3. Streptococcus cellulitis of the left popliteal fossa. 4. Acute kidney injury. 5. Incomplete right bundle branch block with evidence of right heart strain on echocardiography. 6. Post Streptococcus glomerular nephritis. CONSULTANTS: 1. Dr. Cyrus Ortiz, infectious disease. 2. Dr. Yu from orthopedics. 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 He had symptoms for about 5 days prior. He had tested negative for flu outpatient, but continued to have fevers with palpitations and feeling like his heart was skipping a beat, blurry vision, headaches, dizziness, as well as diarrhea, sweats with general malaise, decreased appetite and feeling like solid foods were getting stuck in his throat. He was initially afebrile upon arrival to the emergency department and did admit to having Motrin prior to his arrival. He was found to have a leukocytosis of 31,000 with 75% neutrophils and 12% bands, as well as a lactic acid of 5.1 and C-reactive protein of 44. He also had an acute kidney injury with a creatinine of 1.80. Because of his septic picture, as well as tachycardia, he was given empiric antibiotic coverage, as well as aggressive fluid resuscitation starting with a 30 mL per kg normal saline bolus. He was admitted to the medical/surgical floor but overnight became hypotensive and required vasopressor therapy in order to maintain a mean arterial pressure greater than 65. He was transferred to the intensive care unit (ICU) and a central line was placed. He started to improve slightly. His IV fluids were continued on 02/12/2019 due to crackles at the bases of the lungs and suspected fluid overload. His electrocardiogram (EKG) showed an incomplete right bundle branch block. Echocardiogram showed borderline enlarged left ventricle with an ejection fraction between 65 to 70%, as well as a mildly enlarged right atrium and right ventricle with normokinetic movement, suspicion for PFO (which may require a bubble study at a later date), as well as a small pericardial effusion without evidence of cardiac tamponade. On Doppler, he also had mild mitral regurgitation, trace to mild tricuspid regurgitation and trace pulmonic regurgitation with a calculated pulmonary artery systolic pressure at about 30 mmHg, suspected to be due to fluid overload. He ended up getting hypoxic at night and requiring supportive oxygen via nasal cannula to maintain a saturation greater than 92. This was suspected to be due to pulmonary edema secondary to fluid overload from his aggressive fluid resuscitation from being septic. Clindamycin was added as toxic shock syndrome was suspected by the patient's initially worsening clinical picture, despite empiric antibiotic coverage. Cellulitis, white count, lactic acid and C- reactive protein continued to improve. He was feeling much better and remained afebrile. He had not needed vasopressor therapy since 02/11/2019. His central line was discontinued on 02/14/2019, and he was felt to be meeting discharge criteria on 02/15/2019. PHYSICAL EXAMINATION: VITAL SIGNS: Temperature 97.4, pulse 68 and regular, respiratory rate 18, blood pressure 134/70, 94% on room air. GENERAL: This is a young and fit male sitting up in bed. He looks tired but is in no acute distress. He is pleasant and interactive. HEENT: Atraumatic, normocephalic. Extraocular eye movements intact. Eyes are clear. Conjunctivae without pallor. Sclerae anicteric. Mucous membranes are moist. NECK: Supple. No lymphadenopathy. No jugular venous distention (JVD). No thyromegaly. No masses. The site of the right jugular central line is clean without surrounding erythema. Dressing is in place as the line was removed yesterday. CHEST: Symmetric excursion. No accessory muscle usage. LUNGS: Clear to auscultation bilaterally in the apices with mild bibasilar crackles appreciated and some minimal E-to-A egophony still present in the left lower lobe. HEART: Regular rate and rhythm. Not tachycardic. No murmurs, gallops or rubs. ABDOMEN: Normoactive bowel sounds in all four quadrants. No tympany to percussion. No pain to palpation in all four quadrants. No masses. No splenomegaly. Nondistended. BACK: No rashes. No costovertebral angle tenderness bilaterally. EXTREMITIES: Pulses are 2+ in all four extremities. No lower extremity edema, clubbing or cyanosis is noted. Left leg is elevated and active range of motion has increased for flexing and extending at the knee. Pulses are 2+ bilaterally for dorsalis pedis and posterior tibialis pulses. SKIN: The back of the patient's left leg in the popliteal fossa shows improvement to the erythema, which is only faintly there. He has no induration or blistering. There is an area of skin that is sloughing off. No fluctuance is appreciated nor any masses palpated below the area of erythema. There are minor abrasions and blistering areas of the bilateral feet, as well as what looks to be tinea pedis. NEUROLOGIC: Sensation is intact throughout. Reflexes were not tested. Muscle strength is 5/5 in all four extremities. Cranial nerves II through XII grossly intact. PSYCHIATRIC: Answers questions appropriately. Affect is full. No pressured speech is noted. LABORATORY DATA: CBC: WBC 25.9, hemoglobin 12.9, hematocrit 39.1, platelets 122. Chemistry: Sodium 143, potassium 3.5, chloride 108, carbon dioxide 30, BUN 21, creatinine 1.58, glucose 93, calcium 7.8, total bilirubin 0.7, AST 29, ALT 36, alkaline phosphatase 136, C-reactive protein from 02/14/2019 is 11.1, total protein today is 6.1, albumin is 1.7. Immunology: Low complement C3, normal complement C4, complement C5 is pending. Total complement is 37, which is low. Serology: Fungal antibodies are pending. Monoscreen was negative. Syphilis was negative. HIV was negative. Influenza A and B were negative. Methicillin resistant Staphylococcus aureus (MRSA) was not detected via nasal swab. The patient's antistreptolysin O antibody went from 22.7 to 440. Microbiology: Blood cultures times two were negative. Throat culture was negative. Urine culture was negative. Imaging: Chest x-ray done in the emergency room on 02/10/2019 was completely normal and showed no acute cardiopulmonary process. Chest x-ray done later on that evening after the patient became hypotensive and required pressor support showed a right IJ central venous catheter tip in the mid SVC, as well as cardiac enlargement and engorged vasculature, suggesting mild pulmonary vascular congestion. Knee x-ray done on 02/11/2019 was normal and showed no acute fracture or dislocation. Chest x-ray done on 02/11/2019 showed bibasilar infiltrates and a left sided pleural effusion. Vascular ultrasound of the left lower extremity showed no evidence for deep vein thrombosis (DVT), incidental dull inguinal lymph nodes measuring up to 5.4 cm in maximal diameter and subcutaneous emphysema at the left popliteal fossa. CT of the left knee without contrast showed a small knee joint effusion, as well as soft tissue edema in the subcutaneous soft tissues adjacent to the medial and lateral aspects of the quadriceps muscles, as well as in the fascial planes within the distal thigh and proximal calf. Chest x-ray done on 02/12/2019 showed stable bibasilar infiltrates and small pleural effusions. Chest x-ray done on 02/13/2019 showed stable bibasilar infiltrates and pleural effusions. EKG done in the emergency department showed sinus tachycardia at 137 beats per minute with an incomplete right bundle branch block, as well as ST deviation and moderate T wave abnormality. Echocardiogram showed borderline enlarged left ventricle with an ejection fraction between 65 to 70%, as well as a mildly enlarged right atrium and right ventricle with normokinetic movement, suspicion for PFO, which may require a bubble study at a later date, as well as a small pericardial effusion without evidence of cardiac tamponade. By Doppler he also had mild mitral regurgitation, trace to mild tricuspid regurgitation, and trace pulmonic regurgitation with a calculated pulmonary artery systolic pressure at around 30 mmHg, suspected to be due to fluid overload. DISCHARGE MEDICATIONS: Clindamycin 300 mg by mouth 4 times a day for 9 days, 66 capsules Clotrimazole cream one dose topically twice a day for 14 days Probiotic 1 capsule with by mouth meals for 10 days Motrin 200 mg by mouth every 4 hours when necessary pain or fever Venlafaxine 75 mg by mouth daily ACTIVITY: As tolerated. DIET: As tolerated. Should emphasize more protein intake as his serum protein and albumin were low. ITEMS TO FOLLOWUP ON: 1. Toxic shock syndrome secondary to Streptococcus cellulitis. Continue clindamycin. He is on day 6 of 14 for antibiotic therapy with an end date of 02/23/2019. He should also continue to take probiotic with meals. ID was consulted; appreciate their input 2. Cellulitis of the left lower extremity, improving. Continue with clindamycin to cover for Streptococcus. Should be on light duty until the patient is able to walk without pain. 3. Acute kidney injury, most likely secondary to post Streptococcus glomerular nephritis. Creatinine on day of discharge is 1.58, which is stable. This may take up to 8 weeks or more to resolve. This should be followed with another basic metabolic profile in 3 to 4 weeks. 4. Tachycardiac, resolved. The patient did have an incomplete right bundle branch block with his sinus tachycardia. EKG showed probable right heart strain. This may have been secondary to his underlying infection; however, should be followed up with a repeat EKG when his infection has resolved. His echo also had suspicion for a PFO. Bubble study may be done at a later date. Greater than 30 minutes was spent on discharge. I, Brady Haynes, have independently examined this patient and performed my own physical exam, as well as reviewed the documentation and edited where necessary. I have discussed in detail with the resident / student the findings and plan of treatment as documented by the resident / student and edited their note. I agree with their findings and treatment plan and have edited their documentation. I will continue to follow the patient during this hospital stay. Time spent on discharge 35 minutes MTDD
[2019-02-15 12:00] VITALS: BP 122/68
[2019-02-15] MEDS ORDERED: CLINDAMYCIN 150 MG CAP PO SCH (13:00)
== END 2019-02-15 14:15 | disposition home or self-care (01) | DRG 868 ==
LOC: M ED 09:36 → M ED INP 13:03 → M MSPAV 14:24 → M ICU 22:51 → M PCU 02-14 06:33
PROVIDERS: ADMIT Student in an Organized Health Care Education/Training Program; ATTEND Internal Medicine
PROC: 02HV33Z Insertion of Infusion Device into Superior Vena Cava, Percutaneous Approach (ICD-10-PCS; principal; 2019-02-10)
DX: A48.3 Toxic shock syndrome (principal); N17.9 Acute kidney failure, unspecified; L03.116 Cellulitis of left lower limb; B95.5 Unspecified streptococcus as the cause of diseases classified elsewhere; F41.9 Anxiety disorder, unspecified; F32.9 Major depressive disorder, single episode, unspecified; B35.3 Tinea pedis; Z79.899 Other long term (current) drug therapy